=== PATIENT | male | born 1985 | race Caucasian/White ===

== ENCOUNTER → 2017-02-19 | Outpatient (CLI) | payer OTHER ==
--- NOTE | 2017-02-19 16:45 | XR ---
EXAMINATION TYPE: XR thoracic spine complete DATE OF EXAM: 02/19/2017 4:40 PM CLINICAL HISTORY: pain TECHNIQUE: Frontal, lateral, and swimmer's view of thoracic spine are obtained. COMPARISON: None. FINDINGS: Thoracic spine show satisfactory alignment without evidence of acute fracture or dislocatio n. Mild curvature seen convex to the left. Vertebral body heights are preserved. Disc spaces are wel l preserved. Visualized ribs are unremarkable. IMPRESSION: No acute fracture or dislocation is seen in the thoracic spine. ICD 10 NO FRACTURE, INIT IAL EVALUATION
--- NOTE | 2017-02-19 16:45 | XR ---
EXAMINATION TYPE: XR lumbar spine with bend/flex DATE OF EXAM: 02/19/2017 4:41 PM CLINICAL HISTORY: pain COMPARISON: NONE TECHNIQUE: AP and lateral views of the lumbar spine as well as flexion and extension views obtained. FINDINGS: There are 5 lumbar type vertebral bodies identified. The lumbar spine shows satisfactory alignment without evidence of acute fracture or dislocation. Stability is noted at flexion, extension and neutral lateral position. Vertebral body heights are within normal limits. Disc spaces are well preserved. The overlying soft tissue appears unremarkable. IMPRESSION: No acute fracture or dislocation is seen in the lumbar spine. ICD 10 NO FRACTURE, INITIAL EVALUATION
== END ==
LOC: RADXRMAIN 16:04
PROVIDERS: ATTEND Psychiatry & Neurology Neurology
DX: M54.5 Low back pain (principal); M54.6 Pain in thoracic spine
CPT/HCPCS: 72072; 72114

== ENCOUNTER 2018-04-19 17:44 | Emergency (ER) | payer OTHER ==
[2018-04-19 18:00] VITALS: RESP 18
[2018-04-19] MEDS ORDERED: SODIUM CHLORIDE 0.9% 1,000 ML IV ONE (18:33)
[2018-04-19 19:00] LABS: Basophils % (A) 0 %; Eosinophils # (A) 0.2 k/uL (0-0.7); Eosinophils % (A) 2 %; HCT 48.2 % (39.0-53.0); HGB 16.2 gm/dL (13.0-17.5); Lymphocytes # (A) 1.5 k/uL (1.0-4.8); Lymphocytes % (A) 19 %; MCH 30.4 pg (25.0-35.0); MCHC 33.5 g/dL (31.0-37.0); MCV 90.7 fL (80.0-100.0); Mean Platelet Volume 7.1; Monocytes # (A) 0.5 k/uL (0-1.0); Monocytes % (A) 6 %; Neutrophils # (A) 5.7 k/uL (1.3-7.7); Neutrophils % (A) 71 %; Platelet Count 230 k/uL (150-450); RBC 5.32 m/uL (4.30-5.90); RDW 13.5 % (11.5-15.5)
[2018-04-19 19:02] LABS: Appearance,Urine Clear (Clear); Bilirubin,Urine Negative (Negative); Blood,Urine Negative (Negative); Color,Urine Light Yellow; Glucose,Urine (UA) Negative (Negative); Ketones,Urine Negative (Negative); Leukocyte Esterase,Urine Negative (Negative); Nitrite,Urine Negative (Negative); Protein,Urine Negative (Negative); Specific Gravity,Urine 1.011 (1.001-1.035); Urobilinogen,Urine <2.0 mg/dL (<2.0)
[2018-04-19 19:09] LABS: ALT 125 U/L (21-72); AST 65 U/L (17-59); Albumin 4.8 g/dL (3.5-5.0); Alkaline Phosphatase 75 U/L (38-126); Amylase 56 U/L (30-110); Anion Gap 14 mmol/L; Blood Urea Nitrogen 12 mg/dL (9-20); Calcium 9.8 mg/dL (8.4-10.2); Carbon Dioxide 26 mmol/L (22-30); Chloride 101 mmol/L (98-107); Glucose 104 mg/dL (74-99); Lipase 60 U/L (23-300); Potassium 4.4 mmol/L (3.5-5.1); Sodium 141 mmol/L (137-145); Total Bilirubin 0.5 mg/dL (0.2-1.3); Total Protein 7.8 g/dL (6.3-8.2)
--- NOTE | 2018-04-19 19:31 | ED ---
Abdominal Pain HPI - General Chief Complaint: Abdominal Pain Stated Complaint: Dizziness/Tachycardia Time Seen by Provider: 04/19/18 18:01 Source: patient Mode of arrival: ambulatory Limitations: no limitations - History of Present Illness Initial Comments: 32-year-old male patient presents the emergency department today for evaluation of abdominal pain and back pain. Patient states that he has been having issues on and off for the last couple of months. Patient states he can feel a pulsating in his abdomen. Patient states that this started after he felt a ripping tearing sensation in his "stomach" approximate month ago. Patient states that the pulsating seems to move around the abdomen. He states that he has been fatigued and weak. States he was seen and treated at [facility] the other day. States he did start him on MiraLAX. States he has been having normal bowel movements but his symptoms seem to be continuing. Patient states that he has had sharp lower back pain for the last couple of months as well. States that when he cracks his back the pain improves, but he always has some element of back pain. He denies any radiation of the pain down his legs, no numbness or tingling. No loss of bowel or bladder control. No saddle anesthesia. Patient is very upset, states he feels like no one is listening to him, he is very scared that he has an aneurysm in his abdomen and no one will check for it. Patient does have a mental health history, stopped taking his Abilify 1-2 months ago due to weight gain. He denies any nausea, vomiting, fever, chills, chest pain, shortness of breath, or sweats. States he does have difficulty with urination. Patient denies any recent rash, numbness, tingling, dizziness, weakness, hematuria, dysuria, urinary urgency, urinary frequency, headache, visual changes, or any other complaints. - Related Data Home Medications Medication Instructions Recorded Confirmed No Known Home Medications 02/19/15 05/06/15 Allergies Allergy/AdvReac Type Severity Reaction Status Date / Time No Known Allergies Allergy Verified 05/05/15 21:14 Review of Systems ROS Statement: Those systems with pertinent positive or pertinent negative responses have been documented in the HPI. ROS Other: All systems not noted in ROS Statement are negative. Past Medical History Past Medical History: Hypertension History of Any Multi-Drug Resistant Organisms: None Reported Past Surgical History: No Surgical Hx Reported Additional Past Surgical History / Comment(s): plastic surgery for aguirre Past Psychological History: Bipolar Smoking Status: Former smoker Past Alcohol Use History: Occasional Past Drug Use History: Marijuana General Exam Limitations: no limitations General appearance: alert, in no apparent distress, other (This is a well- developed, obese adult male patient who appears anxious. Vital signs upon presentation are temperature 98.8F, pulse 84, respirations 18, blood pressure 144/84, pulse ox 98% on room air.) Eye exam: Present: normal appearance, PERRL, EOMI. Absent: scleral icterus, conjunctival injection, periorbital swelling ENT exam: Present: normal exam, normal oropharynx, mucous membranes moist Respiratory exam: Present: normal lung sounds bilaterally. Absent: respiratory distress, wheezes, rales, rhonchi, stridor Cardiovascular Exam: Present: regular rate, normal rhythm, normal heart sounds. Absent: systolic murmur, diastolic murmur, rubs, gallop, clicks GI/Abdominal exam: Present: soft, normal bowel sounds. Absent: distended, tenderness, guarding, rebound, rigid Back exam: Present: normal inspection. Absent: vertebral tenderness Neurological exam: Present: alert, oriented X3, CN II-XII intact Psychiatric exam: Present: normal affect, normal mood Skin exam: Present: warm, dry, intact, normal color. Absent: rash Course Vital Signs 04/19/18 04/19/18 17:56 20:05 Temperature 98.8 F 97.6 F Pulse Rate 84 87 Respiratory 18 18 Rate Blood Pressure 144/84 145/67 O2 Sat by Pulse 98 98 Oximetry Medical Decision Making - Medical Decision Making 32-year-old male patient presents to the emergency department today for evaluation of abdominal pulsations and multiple GI symptoms. Physical examination was relatively unremarkable. Abdomen soft and nontender. Labs reviewed and did show mildly elevated liver enzymes consistent with fatty liver seen on computed tomography scan. CT of the abdomen and pelvis was reviewed and showed no acute intra-abdominal processes. Vital signs are stable. Did discuss findings and results with the patient. To follow-up with gastroenterology. He is instructed to follow-up with his primary care physician for recheck in 1-2 days. Return parameters discussed in detail. He verbalizes understanding and agrees with this plan. - Lab Data Result diagrams: 04/19/18 18:48 04/19/18 18:48 Lab Results 04/19/18 04/19/18 04/19/18 Range/Units 18:48 18:48 18:48 WBC 8.0 (3.8-10.6) k/uL RBC 5.32 (4.30-5.90) m/uL Hgb 16.2 (13.0-17.5) gm/dL Hct 48.2 (39.0-53.0) % MCV 90.7 (80.0-100.0) fL MCH 30.4 (25.0-35.0) pg MCHC 33.5 (31.0-37.0) g/dL RDW 13.5 (11.5-15.5) % Plt Count 230 (150-450) k/uL Neutrophils % 71 % Lymphocytes % 19 % Monocytes % 6 % Eosinophils % 2 % Basophils % 0 % Neutrophils # 5.7 (1.3-7.7) k/uL Lymphocytes # 1.5 (1.0-4.8) k/uL Monocytes # 0.5 (0-1.0) k/uL Eosinophils # 0.2 (0-0.7) k/uL Basophils # 0.0 (0-0.2) k/uL Sodium 141 (137-145) mmol/L Potassium 4.4 (3.5-5.1) mmol/L Chloride 101 (98-107) mmol/L Carbon Dioxide 26 (22-30) mmol/L Anion Gap 14 mmol/L BUN 12 (9-20) mg/dL Creatinine 0.80 (0.66-1.25) mg/dL Est GFR (CKD-EPI)AfAm >90 (>60 ml/min/1.73 sqM) Est GFR (CKD-EPI)NonAf >90 (>60 ml/min/1.73 sqM) Glucose 104 H (74-99) mg/dL Calcium 9.8 (8.4-10.2) mg/dL Total Bilirubin 0.5 (0.2-1.3) mg/dL AST 65 H (17-59) U/L ALT 125 H (21-72) U/L Alkaline Phosphatase 75 (38-126) U/L Total Protein 7.8 (6.3-8.2) g/dL Albumin 4.8 (3.5-5.0) g/dL Amylase 56 (30-110) U/L Lipase 60 (23-300) U/L Urine Color Light Yellow Urine Appearance Clear (Clear) Urine pH 6.0 (5.0-8.0) Ur Specific [place] 1.011 (1.001-1.035) Urine Protein Negative (Negative) Urine Glucose (UA) Negative (Negative) Urine Ketones Negative (Negative) Urine Blood Negative (Negative) Urine Nitrite Negative (Negative) Urine Bilirubin Negative (Negative) Urine Urobilinogen <2.0 (<2.0) mg/dL Ur Leukocyte Esterase Negative (Negative) - Radiology Data Radiology results: report reviewed, image reviewed CT of the abdomen and pelvis with contrast was obtained. Report was reviewed in its entirety. Impression by Dr. Virgen shows colonic diverticulosis without abscess formation. No free air or bowel obstruction. Normal appendix. No calcifications or hydronephrosis of either kidney. No calcifications in the urinary bladder. Diminished attenuation coefficient of the liver suggestive the liver steatosis. I also see no evidence of abdominal aortic aneurysm or abnormality. Disposition Clinical Impression: Abdominal pain, Chronic low back pain Disposition: HOME SELF-CARE Condition: Good Instructions: Abdominal Pain (ED), Chronic Back Pain (ED) Additional Instructions: Take Tylenol Motrin for pain control. Increase fruits and veggies as well as fiber in your diet. Continue taking MiraLAX. Follow-up with the plug assembler for further evaluation. Return here immediately for any new , worsening, or concerning symptoms. Is patient prescribed a controlled substance at d/c from ED?: No Referrals: [facility] [Primary Care Provider] - 1-2 days Tammy Bergman MD [STAFF PHYSICIAN] - 1-2 days Time of Disposition: 20:00
--- NOTE | 2018-04-19 19:46 | CT ---
EXAMINATION TYPE: CT abdomen pelvis w con DATE OF EXAM: 04/19/2018 COMPARISON: HISTORY: Abdominal pain CT DLP: 3558 mGycm Automated exposure control for dose reduction was used. TECHNIQUE: Helical acquisition of images was performed from the lung bases through the pelvis. CONTRAST: Performed without Oral Contrast and with IV Contrast, patient injected with 100 mL of Isovue 300. FINDINGS: LUNG BASES: No significant abnormality is appreciated. LIVER/GB: Liver has a diminished attenuation pleural effusion is compared to the spleen indicative of liver steatosis. No distention of the intrahepatic biliary radicles or focal intrahepatic lesions. PANCREAS: No significant abnormality is seen. SPLEEN: No significant abnormality is seen. ADRENALS: No significant abnormality is seen. KIDNEYS: No significant abnormality is seen. FREE AIR: No free air is visualized. RETROPERITONEAL ADENOPATHY: None visualized REPRODUCTIVE ORGANS: No significant abnormality is seen URINARY BLADDER: No significant abnormality is seen. PELVIC ADENOPATHY: None visualized. OSSEOUS STRUCTURES: No significant abnormality is seen. BOWEL: Normal appendix. No free air or bowel obstruction. Scattered colonic diverticula within the sigmoid region indicating diverticulosis without abscess formation. OTHER: IMPRESSION: COLONIC DIVERTICULOSIS WITHOUT ABSCESS FORMATION. NO FREE AIR OR BOWEL OBSTRUCTION. NORMAL APPENDIX. NO CALCIFICATIONS OR HYDRONEPHROSIS OF EITHER KIDNEY. NO CALCIFICATIONS IN THE URINARY BLADDER. DIMINISHED ATTENUATION COEFFICIENT OF THE LIVER SUGGESTIVE OF LIVER STEATOSIS.
[2018-04-19 20:06] VITALS: BP 145/67; PULSE 87; TEMP 97.6
== END 2018-04-19 20:11 | disposition home or self-care (01) ==
LOC: EC 17:44
DX: R10.9 Unspecified abdominal pain (principal); M54.5 Low back pain; G89.29 Other chronic pain; R53.83 Other fatigue; Z87.891 Personal history of nicotine dependence
CPT/HCPCS: 36415; 80053; 82150; 83690; 85025; 81003; 74177; 99284; 96360; Q9967

== ENCOUNTER 2018-11-04 02:00 | Emergency (ER) | payer OTHER ==
[2018-11-04 02:12] VITALS: BP 144/83; PULSE 103; RESP 18; TEMP 99.1
--- NOTE | 2018-11-04 02:47 | ED ---
Psych HPI - General Source: patient, RN notes reviewed Mode of arrival: ambulatory Limitations: no limitations <Lalo Drake - Last Filed: 11/04/18 02:47> <Aisha Tapia - Last Filed: 11/04/18 05:52> <Rinku Mcdonald - Last Filed: 11/04/18 09:54> - General Chief Complaint: Psychiatric Symptoms Stated Complaint: mental health Time Seen by Provider: 11/04/18 02:00 - History of Present Illness Initial Comments: This is a 33-year-old male presents emergency department for psychiatric evaluation. Patient states he has a history of schizophrenia. Patient has not been been taking his medications as directed. He states he's been seeing things that he cannot sleep at nighttime. He believes people are telling him that he is evil in all other things are evil.Patient denies any homicidal ideation but is had thoughts of suicide. Patient doesn't physical complaints. Denies any illicit drug use any alcohol abuse. (Lalo Drake) - Related Data Home Medications Medication Instructions Recorded Confirmed Albuterol Inhaler [Ventolin Hfa 1 - 2 puff INHALATION RT-Q6H PRN 11/04/18 Inhaler] Atenolol 25 mg PO BID 11/04/18 11/04/18 Baclofen [Lioresal] 10 mg PO BID 11/04/18 11/04/18 Cholecalciferol [Vitamin D3] 5,000 unit PO DAILY 11/04/18 11/04/18 Fenofibrate,Micronized 43 mg PO DAILY 11/04/18 11/04/18 [Fenofibrate] Ketorolac [Toradol] 10 mg PO Q6HR PRN 11/04/18 11/04/18 Lisinopril [Zestril] 10 mg PO DAILY 11/04/18 11/04/18 Allergies Allergy/AdvReac Type Severity Reaction Status Date / Time No Known Allergies Allergy Verified 11/04/18 07:20 Review of Systems ROS Other: All systems not noted in ROS Statement are negative. <Lalo Drake - Last Filed: 11/04/18 02:47> ROS Other: All systems not noted in ROS Statement are negative. <Aisha Tapia - Last Filed: 11/04/18 05:52> ROS Other: All systems not noted in ROS Statement are negative. <Rinku Mcdonald - Last Filed: 11/04/18 09:54> ROS Statement: Those systems with pertinent positive or pertinent negative responses have been documented in the HPI. Past Medical History Past Medical History: Hypertension History of Any Multi-Drug Resistant Organisms: MRSA Date of last positivie culture/infection: 04/06/2018 MDRO Source:: buttock wound Past Surgical History: No Surgical Hx Reported Additional Past Surgical History / Comment(s): plastic surgery for aguirre, fingers sewed back on, Past Psychological History: Bipolar, Schizophrenia Smoking Status: Current some day smoker Past Alcohol Use History: Occasional Past Drug Use History: Marijuana <Lalo Drake - Last Filed: 11/04/18 02:47> General Exam Limitations: no limitations General appearance: alert, in no apparent distress Head exam: Present: atraumatic, normocephalic, normal inspection Eye exam: Present: normal appearance, PERRL, EOMI. Absent: scleral icterus, conjunctival injection, periorbital swelling ENT exam: Present: normal exam, normal oropharynx, mucous membranes moist Neck exam: Present: normal inspection. Absent: tenderness, meningismus, lymphadenopathy Respiratory exam: Present: normal lung sounds bilaterally. Absent: respiratory distress, wheezes, rales, rhonchi, stridor Cardiovascular Exam: Present: regular rate, normal rhythm, normal heart sounds. Absent: systolic murmur, diastolic murmur, rubs, gallop, clicks GI/Abdominal exam: Present: soft, normal bowel sounds. Absent: distended, tenderness, guarding, rebound, rigid Neurological exam: Present: alert, oriented X3, CN II-XII intact Psychiatric exam: Present: flat affect Skin exam: Present: warm, dry, intact, normal color. Absent: rash <Lalo Drake - Last Filed: 11/04/18 02:47> Course <aLlo Drake - Last Filed: 11/04/18 02:47> <Aisha Tapia - Last Filed: 11/04/18 05:52> <Rinku Mcdonald - Last Filed: 11/04/18 09:54> Vital Signs 11/04/18 02:05 Temperature 99.1 F Pulse Rate 103 H Respiratory 18 Rate Blood Pressure 144/83 O2 Sat by Pulse 98 Oximetry - Reevaluation(s) Reevaluation #1: 11/04/18 09:53 Patient has been resting relatively comfortably throughout the morning. He will be transferred to [facility]. He has been threatening to the staff members and will require chemical sedation. He will receive Ativan and Geodon prior to transfer. He is threatening harm to staff members. (Rinku Mcdonald) Reevaluation #2: 11/04/18 09:54 I did fill out the transfer forms. (Rinku Mcdonald) Medical Decision Making <Lalo Drake - Last Filed: 11/04/18 02:47> - Lab Data Result diagrams: 11/04/18 04:47 <Aisha Tapia - Last Filed: 11/04/18 05:52> - Lab Data Result diagrams: 11/04/18 04:47 11/04/18 04:47 <Rinku Mcdonald - Last Filed: 11/04/18 09:54> - Medical Decision Making I personally saw and examined the patient. I reviewed and agree with the mid- level provider findings including all diagnostic interpretations and treatment plans as written unless otherwise stated. Upon my evaluation the patient does appear to be acutely psychotic he's having auditory and visual hallucinations. I agree with the EPS assessment and plan for inpatient admission for psychiatric evaluation. I completed the psychiatric certification paperwork for transfer to outside facility. (Aihsa Tapia) - Lab Data Lab Results 11/04/18 11/04/18 11/04/18 Range/Units 04:35 04:35 04:47 WBC 9.4 (3.8-10.6) k/uL RBC 5.16 (4.30-5.90) m/uL Hgb 15.3 (13.0-17.5) gm/dL Hct 46.6 (39.0-53.0) % MCV 90.3 (80.0-100.0) fL MCH 29.7 (25.0-35.0) pg MCHC 32.8 (31.0-37.0) g/dL RDW 13.6 (11.5-15.5) % Plt Count 224 (150-450) k/uL Neutrophils % 63 % Lymphocytes % 26 % Monocytes % 6 % Eosinophils % 3 % Basophils % 0 % Neutrophils # 5.9 (1.3-7.7) k/uL Lymphocytes # 2.5 (1.0-4.8) k/uL Monocytes # 0.5 (0-1.0) k/uL Eosinophils # 0.2 (0-0.7) k/uL Basophils # 0.0 (0-0.2) k/uL Sodium (137-145) mmol/L Potassium (3.5-5.1) mmol/L Chloride (98-107) mmol/L Carbon Dioxide (22-30) mmol/L Anion Gap mmol/L BUN (9-20) mg/dL Creatinine (0.66-1.25) mg/dL Est GFR (CKD-EPI)AfAm (>60 ml/min/1.73 sqM) Est GFR (CKD-EPI)NonAf (>60 ml/min/1.73 sqM) Glucose (74-99) mg/dL Calcium (8.4-10.2) mg/dL Total Bilirubin (0.2-1.3) mg/dL AST (17-59) U/L ALT (21-72) U/L Alkaline Phosphatase (38-126) U/L Total Protein (6.3-8.2) g/dL Albumin (3.5-5.0) g/dL Urine Color Yellow Urine Appearance Clear (Clear) Urine pH 5.5 (5.0-8.0) Ur Specific [place] 1.023 (1.001-1.035) Urine Protein Trace H (Negative) Urine Glucose (UA) Negative (Negative) Urine Ketones Negative (Negative) Urine Blood Negative (Negative) Urine Nitrite Negative (Negative) Urine Bilirubin Negative (Negative) Urine Urobilinogen <2.0 (<2.0) mg/dL Ur Leukocyte Esterase Negative (Negative) Urine Opiates Screen Not Detected (NotDetected) Ur Oxycodone Screen Not Detected (NotDetected) Urine Methadone Screen Not Detected (NotDetected) Ur Propoxyphene Screen Not Detected (NotDetected) Ur Barbiturates Screen Not Detected (NotDetected) U Tricyclic Antidepress Not Detected (NotDetected) Ur Phencyclidine Scrn Not Detected (NotDetected) Ur Amphetamines Screen Not Detected (NotDetected) U Methamphetamines Scrn Not Detected (NotDetected) U Benzodiazepines Scrn Not Detected (NotDetected) Urine Cocaine Screen Not Detected (NotDetected) U Marijuana (THC) Screen Not Detected (NotDetected) 11/04/18 Range/Units 04:47 WBC (3.8-10.6) k/uL RBC (4.30-5.90) m/uL Hgb (13.0-17.5) gm/dL Hct (39.0-53.0) % MCV (80.0-100.0) fL MCH (25.0-35.0) pg MCHC (31.0-37.0) g/dL RDW (11.5-15.5) % Plt Count (150-450) k/uL Neutrophils % % Lymphocytes % % Monocytes % % Eosinophils % % Basophils % % Neutrophils # (1.3-7.7) k/uL Lymphocytes # (1.0-4.8) k/uL Monocytes # (0-1.0) k/uL Eosinophils # (0-0.7) k/uL Basophils # (0-0.2) k/uL Sodium 139 (137-145) mmol/L Potassium 4.1 (3.5-5.1) mmol/L Chloride 104 (98-107) mmol/L Carbon Dioxide 26 (22-30) mmol/L Anion Gap 9 mmol/L BUN 18 (9-20) mg/dL Creatinine 0.90 (0.66-1.25) mg/dL Est GFR (CKD-EPI)AfAm >90 (>60 ml/min/1.73 sqM) Est GFR (CKD-EPI)NonAf >90 (>60 ml/min/1.73 sqM) Glucose 135 H (74-99) mg/dL Calcium 9.4 (8.4-10.2) mg/dL Total Bilirubin 1.3 (0.2-1.3) mg/dL AST 59 (17-59) U/L ALT 88 H (21-72) U/L Alkaline Phosphatase 67 (38-126) U/L Total Protein 7.2 (6.3-8.2) g/dL Albumin 4.4 (3.5-5.0) g/dL Urine Color Urine Appearance (Clear) Urine pH (5.0-8.0) Ur Specific [place] (1.001-1.035) Urine Protein (Negative) Urine Glucose (UA) (Negative) Urine Ketones (Negative) Urine Blood (Negative) Urine Nitrite (Negative) Urine Bilirubin (Negative) Urine Urobilinogen (<2.0) mg/dL Ur Leukocyte Esterase (Negative) Urine Opiates Screen (NotDetected) Ur Oxycodone Screen (NotDetected) Urine Methadone Screen (NotDetected) Ur Propoxyphene Screen (NotDetected) Ur Barbiturates Screen (NotDetected) U Tricyclic Antidepress (NotDetected) Ur Phencyclidine Scrn (NotDetected) Ur Amphetamines Screen (NotDetected) U Methamphetamines Scrn (NotDetected) U Benzodiazepines Scrn (NotDetected) Urine Cocaine Screen (NotDetected) U Marijuana (THC) Screen (NotDetected) Disposition <Lalo Drake - Last Filed: 11/04/18 02:47> Is patient prescribed a controlled substance at d/c from ED?: No <Aisha Tapia - Last Filed: 11/04/18 05:52> Is patient prescribed a controlled substance at d/c from ED?: No <Rinku Mcdonald - Last Filed: 11/04/18 09:54> Clinical Impression: Acute psychosis, Psychosis Disposition: TRANSFER TO PSYCH HOSP/UNIT Condition: Serious Referrals: [facility] [Primary Care Provider] - 1-2 days
[2018-11-04 04:58] LABS: Amphetamine Screen,Urine Not Detected (NotDetected); Barbiturate Screen,Urine Not Detected (NotDetected); Benzodiazepines Screen,Urine Not Detected (NotDetected); Cocaine Screen,Urine Not Detected (NotDetected); Methadone Screen, Urine Not Detected (NotDetected); Opiate Screen,Urine Not Detected (NotDetected); Oxycodone Screen, Urine Not Detected (NotDetected); Phencyclidine Screen,Urine Not Detected (NotDetected); Tricyclic Antidepressant,Urine Not Detected (NotDetected); Urn Cannabinoid Scrn Not Detected (NotDetected)
[2018-11-04 05:03] LABS: Appearance,Urine Clear (Clear); Bilirubin,Urine Negative (Negative); Blood,Urine Negative (Negative); Color,Urine Yellow; Glucose,Urine (UA) Negative (Negative); Ketones,Urine Negative (Negative); Leukocyte Esterase,Urine Negative (Negative); Nitrite,Urine Negative (Negative); PH, Urine 5.5 (5.0-8.0); Protein,Urine Trace (Negative); Specific Gravity,Urine 1.023 (1.001-1.035); Urobilinogen,Urine <2.0 mg/dL (<2.0)
[2018-11-04 05:03] LABS: Basophils % (A) 0 %; Eosinophils # (A) 0.2 k/uL (0-0.7); Eosinophils % (A) 3 %; HCT 46.6 % (39.0-53.0); HGB 15.3 gm/dL (13.0-17.5); Lymphocytes # (A) 2.5 k/uL (1.0-4.8); Lymphocytes % (A) 26 %; MCH 29.7 pg (25.0-35.0); MCHC 32.8 g/dL (31.0-37.0); MCV 90.3 fL (80.0-100.0); Mean Platelet Volume 6.7; Monocytes # (A) 0.5 k/uL (0-1.0); Monocytes % (A) 6 %; Neutrophils # (A) 5.9 k/uL (1.3-7.7); Neutrophils % (A) 63 %; Platelet Count 224 k/uL (150-450); RBC 5.16 m/uL (4.30-5.90); RDW 13.6 % (11.5-15.5); WBC 9.4 k/uL (3.8-10.6)
[2018-11-04 05:20] LABS: ALT 88 U/L (21-72); AST 59 U/L (17-59); Albumin 4.4 g/dL (3.5-5.0); Alkaline Phosphatase 67 U/L (38-126); Anion Gap 9 mmol/L; Blood Urea Nitrogen 18 mg/dL (9-20); Calcium 9.4 mg/dL (8.4-10.2); Carbon Dioxide 26 mmol/L (22-30); Chloride 104 mmol/L (98-107); Glucose 135 mg/dL (74-99); Potassium 4.1 mmol/L (3.5-5.1); Sodium 139 mmol/L (137-145); Total Bilirubin 1.3 mg/dL (0.2-1.3); Total Protein 7.2 g/dL (6.3-8.2)
[2018-11-04] MEDS ORDERED: LORazepam 2 MG/ML INJ IM STA (09:49)
[2018-11-04] MEDS ORDERED: ZIPRASIDONE 20 MG VIAL IM STA (09:50)
[2018-11-04] MEDS ORDERED: diphenhydrAMINE 50 MG/ML 1 ML VIAL IM STA (11:05)
== END 2018-11-04 11:35 ==
LOC: EC 02:00
DX: F23 Brief psychotic disorder (principal); F31.9 Bipolar disorder, unspecified; I10 Essential (primary) hypertension; F17.200 Nicotine dependence, unspecified, uncomplicated; Z86.14 Personal history of Methicillin resistant Staphylococcus aureus infection; Z79.899 Other long term (current) drug therapy
CPT/HCPCS: 36415; 80053; 85025; 81003; 80306; 99285; 96372 ×3; J2060; J1200; J3486

== ENCOUNTER 2023-06-30 19:28 | Emergency (ER) | payer OTHER ==
--- NOTE | 2023-06-30 19:38 | ED ---
Chest Pain HPI - General Source: patient, RN notes reviewed Mode of arrival: wheelchair Limitations: no limitations - History of Present Illness MD Complaint: chest pain <Amy Guevara - Last Filed: 06/30/23 19:39> <Erasmo Donahue - Last Filed: 07/01/23 06:32> - General Chief Complaint: Chest Pain Stated Complaint: Sob, Chest Pain Time Seen by Provider: 06/30/23 19:34 - History of Present Illness Initial Comments: This is a 37 year old male who presents to the emergency department for shortness of breath. Symptoms started 3.5 days ago. States that his whole body "locked up" and he couldn't move when symptoms first began. This has since been occurring intermittently over the last 3.5 days as well. He also feels like there is air in his chest or his chest may explode. He is not currently in any pain, however he states that if his body locks up, he suddenly develops pain that is a 10/10. (Amy Guevara) 37-year-old male with no significant past medical history presents to the emergency department for chest and abdominal pain. Patient complaining of some mild nausea. No fever or constitutional symptoms. It has any history of abdominal surgery. Patient states that the pain is intermittent sometimes hurts more when he coughs or twists. (Erasmo Donahue) - Related Data Home Medications Medication Instructions Recorded Confirmed Albuterol Inhaler [Ventolin Hfa 1 - 2 puff INHALATION RT-Q6H PRN 11/04/18 11/04/18 Inhaler] Baclofen [Lioresal] 10 mg PO BID 11/04/18 11/04/18 Cholecalciferol [Vitamin D3] 5,000 unit PO DAILY 11/04/18 11/04/18 Fenofibrate,Micronized 43 mg PO DAILY 11/04/18 11/04/18 [Fenofibrate] Ketorolac [Toradol] 10 mg PO Q6HR PRN 11/04/18 11/04/18 atenoloL [Atenolol] 25 mg PO BID 11/04/18 11/04/18 lisinopriL [Zestril] 10 mg PO DAILY 11/04/18 11/04/18 Allergies Allergy/AdvReac Type Severity Reaction Status Date / Time No Known Allergies Allergy Verified 06/30/23 19:39 Review of Systems ROS Other: All systems not noted in ROS Statement are negative. <Amy Guevara - Last Filed: 06/30/23 19:39> ROS Other: All systems not noted in ROS Statement are negative. <Erasmo Donahue - Last Filed: 07/01/23 06:32> ROS Statement: Those systems with pertinent positive or pertinent negative responses have been documented in the HPI. Past Medical History Past Medical History: Hypertension History of Any Multi-Drug Resistant Organisms: MRSA Date of last positivie culture/infection: 04/06/2018 MDRO Source:: buttock wound Past Surgical History: No Surgical Hx Reported Additional Past Surgical History / Comment(s): plastic surgery for aguirre, fingers sewed back on, Past Psychological History: Bipolar, Schizophrenia Past Alcohol Use History: Occasional Past Drug Use History: Marijuana <Amy Guevara - Last Filed: 06/30/23 19:39> General Exam <Amy Guevara - Last Filed: 06/30/23 19:39> <Erasmo Donahue - Last Filed: 07/01/23 06:32> - General Exam Comments Initial Comments: Visual Physical Exam Vital signs reviewed General: Well-appearing, nontoxic, no acute distress. Head: Normocephalic, atraumatic Eyes: PERRLA, EOMI ENT: Airway patent Chest: Nonlabored breathing Skin: No visual rash, normal skin tone Neuro: Alert and oriented 3 Musculoskeletal: No gross abnormalities I performed the QuickNote portion of this chart. Signed Amy Guevara PA-C. (Amy Guevara) PHYSICAL EXAM: General Impression: Alert and oriented x3, not in acute distress HEENT: Normocephalic atraumatic, extra-ocular movements intact, pupils equal and reactive to light bilaterally, mucous membranes moist. Cardiovascular: Heart regular rate and rhythm Chest: Able to complete full sentences, no retractions, no tachypnea Abdomen: abdomen soft, non-tender, non-distended, no organomegaly Musculoskeletal: Pulses present and equal in all extremities, no peripheral edema Motor: no focal deficits noted Neurological: CN II-XII grossly intact, no focal motor or sensory deficits noted Skin: Intact with no visualized rashes Psych: Normal affect and mood (Erasmo Donahue) Course Vital Signs 06/30/23 06/30/23 06/30/23 19:36 23:10 23:41 Temperature 97.9 F 98.7 F Pulse Rate 110 H 98 88 Respiratory 28 H 20 16 Rate Blood Pressure 117/74 141/82 125/85 O2 Sat by Pulse 94 L 97 98 Oximetry Chest Pain MDM <Erasmo Donahue - Last Filed: 07/01/23 06:32> - MDM Was pt. sent in by a medical professional or institution (, PA, STATION AGENT, urgent care, hospital, or [place] health care facility...) When possible be specific @ -No Did you speak to anyone other than the patient for history (EMS, parent, family, police, friend...)? What history was obtained from this source @ -No Did you review nursing and triage notes (agree or disagree)? Why? @ -I reviewed and agree with nursing and triage notes Were old charts reviewed (outside hosp., previous admission, EMS record, old EKG, old radiological studies, urgent care reports/EKG's, [place] health care facility records)? Report findings @ -No old charts were reviewed Differential Diagnosis (chest pain, altered mental status, abdominal pain women, abdominal pain men, vaginal bleeding, musculoskeletal, weakness, fever, dyspnea, syncope, headache, dizziness, GI bleed, back pain, seizure, CVA, palpatations, mental health)? @ -Differential Abdominal Pain Men: Appendicitis, cholecystitis, diverticulosis, ischemic bowel, pancreatitis, hepatitis, UTI, gastroenteritis, AAA, incarcerated hernia, bowel obstruction, constipation, inflammatory bowel, hepatitis, peptic ulcer disease, splenic infarction, perforated viscus, testicular torsion, this is not meant to be an all-inclusive list EKG interpreted by me (3pts min.). @ -see above X-rays interpreted by me (1pt min.). @ -Abdominal x-ray is unremarkable. CT interpreted by me (1pt min.). @ -CT angiography is negative for PE or any acute processes U/S interpreted by me (1pt. min.). @ -Abdominal ultrasound is negative for acute cholecystitis or cholelithiasis. What testing was considered but not performed or refused? (CT, X-rays, U/S, labs)? Why? @ -None What meds were considered but not given or refused? Why? @ -None Did you discuss the management of the patient with other professionals (professionals i.e. , PA, STATION AGENT, lab, RT, psych nurse, protective services social worker, surgical services assistant, teacher, aoc plans intelligence officer, business case analyst)? Give summary @ -No Was smoking cessation discussed for >3mins.? @ -No Was critical care preformed (if so, how long)? @ -No Were there social determinants of health that impacted care today? How? (Homelessness, low income, unemployed, alcoholism, drug addiction, transportation, low edu. Level, literacy, decrease access to med. care, correction, rehab)? @ -No Was there de-escalation of care discussed even if they declined (Discuss DNR or withdrawal of care, Hospice)? DNR status @ -No What co-morbidities impacted this encounter? (DM, HTN, Smoking, COPD, CAD, Cancer, CVA, ARF, Chemo, Hep., AIDS, mental health diagnosis, sleep apnea, morbid obesity)? @ -None Was patient admitted / discharged? Hospital course, mention meds given and route, prescriptions, significant lab abnormalities, going to OR and other pertinent info. @ -37-year-old male presents emergency department with a constellation of symptoms including chest pain and abdominal pain. He was seen initially in [facility] for rehabilitation. His vital signs are stable. From triage patient had workup for pulmonary embolism chest pain. CT angiography chest x-ray and blood work is unremarkable. At the time of my evaluation he was complaining of right upper quadrant abdominal pain. Ultrasound abdominal x-ray negative. Patient tolerating oral intake. Labs and imaging results were discussed with patient. He is stable. Patient discharged told to follow-up with primary care doctor. Undiagnosed new problem with uncertain prognosis? @ -No Drug Therapy requiring intensive monitoring for toxicity (Heparin, Nitro, Insulin, Cardizem)? @ -No Were any procedures done? @ -No Diagnosis/symptom? Acute, or Chronic, or Acute on Chronic? Uncomplicated (without systemic symptoms) or Complicated (systemic symptoms)? @ -1. Chest and abdominal pain, no high-risk features Side effects of treatment? @ -No Exacerbation, Progression, or Severe Exacerbation? @ -No Poses a threat to life or bodily function? How? (Chest pain, [place], [place], pneumonia, PE, COPD, DKA, ARF, appy, cholecystitis, CVA, Diverticulitis, Homicidal, Suicidal, threat to staff... and all critical care pts) @ -No (Erasmo Donahue) Disposition <Amy Guevara - Last Filed: 06/30/23 19:39> Is patient prescribed a controlled substance at d/c from ED?: No <Erasmo Donahue - Last Filed: 07/01/23 06:32> Clinical Impression: Chest pain, Abdominal pain Disposition: HOME SELF-CARE Condition: Good Instructions (If sedation given, give patient instructions): Abdominal Pain (ED) Referrals: [facility] [Primary Care Provider] - 1-2 days
--- NOTE | 2023-06-30 20:17 | XR ---
EXAMINATION TYPE: XR chest 2V DATE OF EXAM: 06/30/2023 COMPARISON: None HISTORY: 37-year-old male with chest pain and shortness of breath for 3 days TECHNIQUE: PA and lateral views FINDINGS: The cardiomediastinal silhouette, aorta, and pulmonary vasculature are within normal limits. Lungs an d pleural spaces are clear. IMPRESSION: No acute cardiopulmonary process.
[2023-06-30 21:09] LABS: Basophils % (A) 0 %; Eosinophils # (A) 0.2 k/uL (0-0.7); Eosinophils % (A) 2 %; HCT 44.7 % (39.0-53.0); HGB 15.1 gm/dL (13.0-17.5); Lymphocytes # (A) 1.5 k/uL (1.0-4.8); Lymphocytes % (A) 17 %; MCH 30.8 pg (25.0-35.0); MCHC 33.6 g/dL (31.0-37.0); MCV 91.5 fL (80.0-100.0); Mean Platelet Volume 7.8; Monocytes # (A) 0.7 k/uL (0-1.0); Monocytes % (A) 7 %; Neutrophils # (A) 6.4 k/uL (1.3-7.7); Neutrophils % (A) 70 %; Platelet Count 300 k/uL (150-450); RBC 4.89 m/uL (4.30-5.90); RDW 13.2 % (11.5-15.5); WBC 9.2 k/uL (3.8-10.6)
[2023-06-30 21:23] LABS: ALT 75 U/L (4-49); AST 57 U/L (17-59); African American GFR (CKD) >90 (>60 ml/min/1.73 sqM); Albumin 4.4 g/dL (3.5-5.0); Alkaline Phosphatase 74 U/L (38-126); Anion Gap 8 mmol/L; Blood Urea Nitrogen 10 mg/dL (9-20); Calcium 9.3 mg/dL (8.4-10.2); Carbon Dioxide 28 mmol/L (22-30); Chloride 99 mmol/L (98-107); Glucose 88 mg/dL (74-99); Magnesium 2.1 mg/dL (1.6-2.3); Non-African American GFR(CKD) >90 (>60 ml/min/1.73 sqM); Potassium 4.2 mmol/L (3.5-5.1); Sodium 135 mmol/L (137-145); Total Bilirubin 0.6 mg/dL (0.2-1.3); Total Protein 7.8 g/dL (6.3-8.2)
[2023-06-30 21:33] LABS: INR 0.9 (<1.2); Prothrombin Time 9.5 sec (9.0-12.0)
[2023-06-30 21:35] LABS: Partial Thromboplastin Time 19.7 sec (22.0-30.0)
--- NOTE | 2023-06-30 22:27 | CT ---
EXAM: CT Angiography Chest With Intravenous Contrast CLINICAL HISTORY: ITS.REASON CT Reason: DEON, Chest pain, elevated d-dimer TECHNIQUE: Axial computed tomographic angiography images of the chest with intravenous contrast. CTDI is 63.1 mGy and DLP is 2702 mGy-cm. This CT exam was performed using one or more of the following dose reduction techniques: automated exposure control, adjustment of the mA and/or kV according to patient size, and/or use of iterative reconstruction technique. MIP reconstructed images were created and reviewed. COMPARISON: No relevant prior studies available. FINDINGS: Pulmonary arteries: Unremarkable. No pulmonary embolism. Aorta: No acute findings. No thoracic aortic aneurysm. Lungs: Unremarkable. No mass. No consolidation. Pleural space: Unremarkable. No significant effusion. No pneumothorax. Heart: Unremarkable. No cardiomegaly. No significant pericardial effusion. No evidence of RV dysfunction. Bones/joints: No acute fracture. No dislocation. Soft tissues: Unremarkable. Lymph nodes: Unremarkable. No enlarged lymph nodes. Liver: Hepatic steatosis. IMPRESSION: No acute findings in the visualized arteries of the chest.
[2023-06-30 23:11] VITALS: TEMP 98.7
[2023-06-30 23:41] VITALS: BP 125/85; PULSE 88; RESP 16
--- NOTE | 2023-07-01 00:23 | US ---
EXAM: US Abdomen Complete CLINICAL HISTORY: ITS.REASON US Reason: ruq pain TECHNIQUE: Real-time ultrasound of the abdomen with image documentation. COMPARISON: No relevant prior studies available. FINDINGS: Liver: Hepatic steatosis. No intrahepatic bile duct dilation. Gallbladder: Unremarkable. No gallstones. Common bile duct: Nonvisualized common bile duct. Pancreas: Poorly visualized pancreas. Kidneys: Unremarkable. No stones. No solid mass. No hydronephrosis. IMPRESSION: Hepatic steatosis.
--- NOTE | 2023-07-01 02:01 | XR ---
EXAM: XR Abdomen, 1 View CLINICAL HISTORY: abdominal cramping TECHNIQUE: Frontal upright view of the abdomen/pelvis. COMPARISON: No relevant prior studies available. FINDINGS: Intraperitoneal space: No pneumoperitoneum. Gastrointestinal tract: No significant stool burden. No dilation. Organs: Excreted contrast noted in the bladder and nondilated renal collecting systems. Bones/joints: Unremarkable. IMPRESSION: Nonspecific, nonobstructive bowel gas pattern. No pneumoperitoneum.
[2023-07-01 06:34] LABS: Appearance,Urine Clear (Clear); Color,Urine Yellow; Specific Gravity,Urine >1.050 (1.001-1.035)
[2023-07-01 06:35] LABS: Bilirubin,Urine Negative (Negative); Blood,Urine Negative (Negative); Glucose,Urine (UA) Negative (Negative); Ketones,Urine Negative (Negative); Leukocyte Esterase,Urine Negative (Negative); Nitrite,Urine Negative (Negative); PH, Urine 6.5 (5.0-8.0); Protein,Urine Negative (Negative); RBC,Urine 0 /hpf (0-5); Urobilinogen,Urine <2.0 mg/dL (<2.0); WBC,Urine <1 /hpf (0-5)
== END 2023-07-01 04:15 | disposition home or self-care (01) ==
LOC: EC 19:28
DX: R07.89 Other chest pain (principal); R10.11 Right upper quadrant pain; K76.0 Fatty (change of) liver, not elsewhere classified; I10 Essential (primary) hypertension; F12.90 Cannabis use, unspecified, uncomplicated; Z86.59 Personal history of other mental and behavioral disorders; Z79.899 Other long term (current) drug therapy
CPT/HCPCS: 36415; 93005; 85379; 80053; 83735; 84484; 85025; 85610; 85730; 71046; 71275; 99285; Q9967; 74018; 76705; 81003

== ENCOUNTER 2024-09-13 23:41 | Inpatient (IN) | payer MEDICAID, OTHER ==
--- NOTE | 2024-09-14 00:13 | ED ---
Psych HPI - General Chief Complaint: Psychiatric Symptoms Stated Complaint: Mental Health Time Seen by Provider: 09/13/24 23:54 Source: patient, RN notes reviewed Mode of arrival: ambulatory - History of Present Illness Initial Comments: This is a 39-year-old male who presents to the emergency department for psychiatric evaluation. Patient reportedly had his medication adjusted by [facility] and did not like how it made him feel, so he stopped taking them. Brother states that he has been off of his medication for about a week. Patient is very fixated on speaking with God. States that when he does not have time to pray, that God is going to light him on fire. Also states that he randomly has pains and the only way it will heal is with God. However, because God is mad at him ri ght now, he is having more pain. He denies any suicidal or homicidal ideations. States that he did microwave a can of soup with the lid inside of it. He is concerned that because he ate the soup that there is metal all throughout his body. - Related Data Home Medications Medication Instructions Recorded Confirmed Albuterol Inhaler [Ventolin Hfa 1 - 2 puff INHALATION RT-Q6H PRN 11/04/18 11/04/18 Inhaler] Baclofen [Lioresal] 10 mg PO BID 11/04/18 11/04/18 Cholecalciferol [Vitamin D3] 5,000 unit PO DAILY 11/04/18 11/04/18 Fenofibrate,Micronized 43 mg PO DAILY 11/04/18 11/04/18 [Fenofibrate] Ketorolac [Toradol] 10 mg PO Q6HR PRN 11/04/18 11/04/18 atenoloL [Atenolol] 25 mg PO BID 11/04/18 11/04/18 lisinopriL [Zestril] 10 mg PO DAILY 11/04/18 11/04/18 Allergies Allergy/AdvReac Type Severity Reaction Status Date / Time No Known Allergies Allergy Verified 09/13/24 23:50 Review of Systems ROS Statement: Those systems with pertinent positive or pertinent negative responses have been documented in the HPI. ROS Other: All systems not noted in ROS Statement are negative. Past Medical History Past Medical History: Hypertension History of Any Multi-Drug Resistant Organisms: MRSA Date of last positivie culture/infection: 04/06/2018 MDRO Source:: buttock wound Past Surgical History: No Surgical Hx Reported Additional Past Surgical History / Comment(s): plastic surgery for aguirre, fingers sewed back on, Past Psychological History: Bipolar, Schizophrenia Past Alcohol Use History: Occasional Past Drug Use History: Marijuana General Exam Limitations: no limitations General appearance: alert, in no apparent distress Head exam: Present: atraumatic, normocephalic, normal inspection Respiratory exam: Present: normal lung sounds bilaterally. Absent: respiratory distress, wheezes, rales, rhonchi, stridor Cardiovascular Exam: Present: regular rate, normal rhythm, normal heart sounds. Absent: systolic murmur, diastolic murmur, rubs, gallop, clicks Neurological exam: Present: alert, oriented X3, CN II-XII intact Psychiatric exam: Absent: homicidal ideation, suicidal ideation Expanded Focused psych exam: Present: delusional, paranoid, perseverating Skin exam: Present: warm, dry, intact, normal color. Absent: rash Course Vital Signs 09/13/24 23:47 Temperature 98.5 F Pulse Rate 103 H Respiratory 20 Rate Blood Pressure 115/82 O2 Sat by Pulse 96 Oximetry Medical Decision Making - Medical Decision Making This is a 39-year-old male who presents to the emergency department for psychiatric evaluation. Was pt. sent in by a medical professional or institution? @ -No Did you speak to anyone other than the patient for history? @ -His brother provided the information about how long he has been off of his medication Did you review nursing and triage notes? @ -Yes, and I agree, it is accurate with regards to the patient's symptoms. Were old charts reviewed? @ -No Differential Diagnosis? @ -Differential Mental Health Depression, anxiety, bipolar, psychosis, schizophrenia, borderline personality, situational depression, adjustment disorder, behavioral disorder, brain tumor, malingering, substance abuse, encephalopathy, medication reaction, dementia, hypothyroidism, degenerative neurologic disorder, lupus.... This is not meant to be all-inclusive list EKG interpreted by me (3pts min.)? @ -Not obtained X-rays interpreted by me (1pt min.)? @ -Not obtained CT interpreted by me (1pt min.)? @ -Not obtained U/S interpreted by me (1pt. min.)? @ -Not obtained What testing was considered but not performed? (CT, X-rays, U/S, labs)? Why? @ -None What meds were considered but not given? Why? @ -None Did you discuss the management of the patient with other professionals? @ -Yes, Tamera with EPS, who advised that the patient meets criteria for inpatient psychiatric hospitalization. Did you reconcile home meds? @ -No Was smoking cessation discussed for >3mins.? @ -No Was critical care preformed (if so, how long)? @ -No Were there social determinants of health that impacted care today? How? (Homelessness, low income, unemployed, alcoholism, drug addiction, transportation, low edu. Level, literacy, decrease access to med. care, senior living, rehab)? @ -No Was there de-escalation of care discussed even if they declined? (Discuss DNR or withdrawal of care, Hospice)? @ -No What co-morbidities impacted this encounter? (DM, HTN, Smoking, COPD, CAD, Cancer, CVA, Hep., AIDS, mental health diagnosis, sleep apnea, morbid obesity)? @ -Schizophrenia Was patient admitted / discharged? @ -Admitted. UDS positive for marijuana. Patient's BAT was 0.0 and he was cleared for EPS evaluation. EPS evaluated the patient and advised that he does meet criteria for inpatient psychiatric hospitalization due to acute psychosis. He has been experiencing paranoia, delusions, and auditory hallucinations. He is also noncompliant with his medication and ADLs are compromised. Patient signed himself in voluntarily. Patient admitted to for further psychiatric care. Case discussed with ED attending, Dr. Murcia. Undiagnosed new problem with uncertain prognosis? @ -None Drug Therapy requiring intensive monitoring for toxicity (Heparin, Nitro, Insulin, Cardizem)? @ -None Were any procedures done? @ -None Diagnosis/symptom? @ -Acute psychosis Acute, or Chronic, or Acute on Chronic? @ -Acute Uncomplicated (without systemic symptoms) or Complicated (systemic symptoms)? @ -Complicated Side effects of treatment? @ -None Exacerbation, Progression, or Severe Exacerbation] @ -Not applicable Poses a threat to life or bodily function? @ -Yes, there is risk to himself and others when he is exhibiting acute psychosis. - Lab Data Lab Results 09/14/24 Range/Units 00:23 Urine Color Yellow Urine Appearance Clear (Clear) Urine pH 5.5 (5.0-8.0) Ur Specific [place] 1.023 (1.001-1.035) Urine Protein Negative (Negative) Urine Glucose (UA) Negative (Negative) Urine Ketones Negative (Negative) Urine Blood Negative (Negative) Urine Nitrite Negative (Negative) Urine Bilirubin Negative (Negative) Urine Urobilinogen 6.0 (<2.0) mg/dL Ur Leukocyte Esterase Negative (Negative) Urine Opiates Screen Not Detected (NotDetected) Ur Oxycodone Screen Not Detected (NotDetected) Urine Methadone Screen Not Detected (NotDetected) Ur Barbiturates Screen Not Detected (NotDetected) U Tricyclic Antidepress Not Detected (NotDetected) Ur Phencyclidine Scrn Not Detected (NotDetected) Ur Amphetamines Screen Not Detected (NotDetected) U Methamphetamines Scrn Not Detected (NotDetected) U Benzodiazepines Scrn Not Detected (NotDetected) Urine Cocaine Screen Not Detected (NotDetected) U Marijuana (THC) Screen Detected H (NotDetected) Disposition Clinical Impression: Acute psychosis Disposition: TRANSFER TO PSYCH HOSP/UNIT Referrals: None,Stated [REFERRING] - 1-2 days
[2024-09-14 00:49] LABS: Appearance,Urine Clear (Clear); Bilirubin,Urine Negative (Negative); Blood,Urine Negative (Negative); Color,Urine Yellow; Glucose,Urine (UA) Negative (Negative); Ketones,Urine Negative (Negative); Leukocyte Esterase,Urine Negative (Negative); Nitrite,Urine Negative (Negative); PH, Urine 5.5 (5.0-8.0); Protein,Urine Negative (Negative); Specific Gravity,Urine 1.023 (1.001-1.035)
[2024-09-14 01:16] LABS: Amphetamine Screen,Urine Not Detected (NotDetected); Barbiturate Screen,Urine Not Detected (NotDetected); Benzodiazepines Screen,Urine Not Detected (NotDetected); Cocaine Screen,Urine Not Detected (NotDetected); Methadone Screen, Urine Not Detected (NotDetected); Opiate Screen,Urine Not Detected (NotDetected); Oxycodone Screen, Urine Not Detected (NotDetected); Phencyclidine Screen,Urine Not Detected (NotDetected); Tricyclic Antidepressant,Urine Not Detected (NotDetected); Urn Cannabinoid Scrn Detected (NotDetected)
[2024-09-14] MEDS: LORazepam 1 MG TAB PO STA (01:46)
[2024-09-14] MEDS: LORazepam 2 MG/ML INJ IM STA (01:46)
[2024-09-14] MEDS ORDERED: MAG HYDROX/AL HYDROX/SIMETH 355 ML BOTTLE PO PRN (03:46)
[2024-09-14] MEDS ORDERED: traZODone HCL 50 MG TAB PO PRN (03:46)
[2024-09-14] MEDS ORDERED: LORazepam 2 MG/ML INJ IM PRN (03:46)
[2024-09-14] MEDS ORDERED: ZIPRASIDONE 20 MG VIAL IM PRN (03:46)
[2024-09-14] MEDS ORDERED: MAGNESIUM HYDROXIDE 2,400 MG/30 ML CUP PO PRN (03:46)
[2024-09-14] MEDS ORDERED: IBUPROFEN 600 MG TAB PO PRN (03:46)
[2024-09-14] MEDS: ACETAMINOPHEN TAB 325 MG TAB PO PRN (04:33)
[2024-09-14] MEDS: CALCIUM CARBONATE 500 MG CHEWABLE PO PRN (06:43)
[2024-09-14] MEDS: NICOTINE 14MG/24HR PATCH TRANSDERM SCH (08:27)
--- NOTE | 2024-09-14 12:37 | P.HP ---
Psychiatric H&P - . H&P Date: 09/14/24 History & Physical: Allergies Allergy/AdvReac Type Severity Reaction Status Date / Time No Known Allergies Allergy Verified 09/13/24 23:50 Vital Signs Temp 98.4 F 09/14/24 04:46 Pulse 94 09/14/24 04:46 Resp 18 09/14/24 04:46 BP 120/77 09/14/24 04:46 Pulse Ox 100 09/14/24 04:46 FiO2 Intake & Output 09/13/24 09/14/24 09/14/24 18:59 06:59 18:59 Weight 135.426 kg Laboratory Last Values Urine Color Yellow 09/14/24 00:23 Urine Appearance Clear (Clear) 09/14/24 00:23 Urine pH 5.5 (5.0-8.0) 09/14/24 00:23 Ur Specific [place] 1.023 (1.001-1.035) 09/14/24 00:23 Urine Protein Negative (Negative) 09/14/24 00:23 Urine Glucose (UA) Negative (Negative) 09/14/24 00:23 Urine Ketones Negative (Negative) 09/14/24 00:23 Urine Blood Negative (Negative) 09/14/24 00:23 Urine Nitrite Negative (Negative) 09/14/24 00:23 Urine Bilirubin Negative (Negative) 09/14/24 00:23 Urine Urobilinogen 6.0 mg/dL (<2.0) 09/14/24 00:23 Ur Leukocyte Esterase Negative (Negative) 09/14/24 00:23 Urine Opiates Screen Not Detected (NotDetected) 09/14/24 00:23 Ur Oxycodone Screen Not Detected (NotDetected) 09/14/24 00:23 Urine Methadone Screen Not Detected (NotDetected) 09/14/24 00:23 Ur Barbiturates Screen Not Detected (NotDetected) 09/14/24 00:23 U Tricyclic Antidepress Not Detected (NotDetected) 09/14/24 00:23 Ur Phencyclidine Scrn Not Detected (NotDetected) 09/14/24 00:23 Ur Amphetamines Screen Not Detected (NotDetected) 09/14/24 00:23 U Methamphetamines Scrn Not Detected (NotDetected) 09/14/24 00:23 U Benzodiazepines Scrn Not Detected (NotDetected) 09/14/24 00:23 Urine Cocaine Screen Not Detected (NotDetected) 09/14/24 00:23 U Marijuana (THC) Screen Detected (NotDetected) H 09/14/24 00:23 Influenza Type A (PCR) Not Detected (Not Detectd) 09/14/24 01:26 Influenza Type B (PCR) Not Detected (Not Detectd) 09/14/24 01:26 RSV (PCR) Not Detected (Not Detectd) 09/14/24 01:26 SARS-CoV-2 (PCR) Not Detected (Not Detectd) 09/14/24 01:26 09/14/24 11:26 IDENTIFYING DATA: Patient is a 39-year-old single male, recently homeless CHIEF COMPLAINT: Psychosis HPI: Patient presented to the hospital with auditory hallucinations. EPS evaluation revealed, "Patient presents to ED with his brother. States he is poisoned with metal. Brother reports patient microwaved a can of soup with the lid on and now patient believes the metal is inside him. He then states "I am also hearing voices". reports he quit taking his meds because they made the voices worse. patient denies suicide, admits to past thoughts and reports that his mother from suicide and his brother confirmed this. When asked if he ever attempted suicide he first said no then said yes and said he doesnt want to talk about it. Patient thought blocking. When questioned if he was homicidal patient states "only to people that want to kill me. I dont know. God knows. Sonu Knows. I mock God and tell him to fuck off everytime he mocks me". When questioned if the voices were command in nature patient states "I smell pee". Patient admits to needing help with the voices. Cooperative with this flex o writer operator and trusting with his brother. Brother made a statement about going to patient's camper and retriving some items, including slippers for the patient. He states "I peed on those slippers and licked it off. the angels were there. I pissed and shit all over that camper. The voices said to do it." patient states he can not go back to that camper, feels unsafe and states "I became homeless two hours ago"." Patient seen and evaluated on the unit and was seen asleep in bed he requested flex o writer operator to return in an hour. Upon second pass, he states feeling tired. Patient notably is a poor historian and was not forthcoming with inform ation, often with paucity of thought content. He states feeling like he was being poisoned and that he still has metal in his stomach. He states he is unsure why he is here at the psychiatric hospital as he needs more medical care. He reports auditory hallucinations that are command in nature and states they are threatening flex o writer operator at the moment. Went through patient's medications with him as he has trialed several psychotropic medications and he was agreeable with starting Seroquel as he has not tried this med previously. He reports a history of worsening in his voices with psychotropic medications and other various adverse effects including akathisia and muscle stiffness. Patient denies any suicidal or homicidal ideations intent or plan. At this time patient denies any visual hallucinations. Patient denies any flight of ideas racing thoughts and increased in goal directed behavior. PAST PSYCHIATRIC HISTORY: Patient has a history of schizoaffective disorder, bipolar type, antisocial personality disorder. Patient denies being on any psychiatric medications. He recently discontinued his psychotropic medications including Lexapro 5 mg, prazosin 2 mg as needed, Trileptal 300 mg twice daily. He previously has tried Latuda, trazodone, Zyprexa, Seroquel, Risperdal, Topamax, Geodon, Abilify, Invega. Patient was last seen in this facility in 2014. He follows with [facility]. Patient denies any history of suicide attempts in the past. PMH: as per ER note ALLERGIES: as per EMR SUBSTANCE USE HISTORY: UDS positive for cannabis FAMILY PSYCHIATRIC/SUBSTANCE USE HISTORY: Mother reportedly completed suicide SOCIAL HISTORY: Patient was recently living in a camper on his friend's property however is newly homeless. He is single however has his brother for support MENTAL STATUS EXAM: General Appearance: Patient appears to be stated age is sedated and largely uncooperative. Patient appears to have poor hygiene and grooming. Behavior: Patient is seated without any agitated behavior. Speech: Patient's speech is fluent and nonpressured. Mood/Affect: Patient reports their mood is "all right", affect is congruent and constricted. Suicidality/Homicidality: Patient denies having any homicidal ideation intent or plan. Denies any suicidal ideations intent or plan Perceptions: Patient denies any visual hallucinations however reports auditory hallucinations that are command in nature, threatening flex o writer operator Though content/process: There is paucity of thought content and paranoia, nonbizarre delusions Memory and concentration: AOX3, grossly intact for the purposes of this session. Can spell "WORLD" backwards Judgment and insight: Poor STRENGTHS/WEAKNESSES: strength is that patient is resilient. Weakness is that patient has poor judgment and is impulsive INTELLECT: Average IMPRESSIONS: Schizoaffective disorder, bipolar type History of antisocial personality disorder Cannabis use disorder PLAN: -Patient is admitted under voluntary status to [facility] for stabilization of psychiatric symptoms and safety. Patient has signed adult voluntary form and medication consent and is placed in patient's chart. -Medications : Start Seroquel 25 mg twice daily for psychosis -Ativan and Geodon PRN for agitation/aggression -Patient was counselled on substance abuse and desired to cut back on use -Patient was informed of the risks, benefits and side effects of the medication and patient verbally consented to taking the medications. Patient signed med consent form and was placed in chart. -Internal Medicine consult to perform medical evaluation and physical. -NRT -nicotine patch -SW on board for discharge planning. Encourage patient to participate in groups to work on coping skills.
[2024-09-14] MEDS: QUEtiapine 25 MG TAB PO SCH (13:41)
--- NOTE | 2024-09-15 11:21 | P.PN ---
Progress Note - Text Progress Note Date: 09/15/24 Interval History: Patient was seen laying in bed and was directable and agreeable to speak with medical underwriter in his room. He states feeling "so-so" however does report feeling a bit better than yesterday. She continues to display thought blocking with delayed responses. He states the voices are "driving me crazy" however does not report them being command in nature today. He states he has not yet spoken to his brother. He reports poor sleep due to hot flashes. He states refusing the blood draw this morning given he did not know what it was for and that staff are not God however is agreeable with getting this done this afternoon. He reports feeling like the medications are working on "half of my body". At this time patient denies any suicidal or homicidal ideations, intent or plan. Patient denies any visual hallucinations. Patient denies any side effects from the medications and has been compliant with meds. Mental Status Exam: General Appearance: Patient appears to be stated age is sleepy but directable, and somewhat cooperative. Behavior: Patient is calmly laying without any agitated behavior. Speech: Patient's speech is fluent and nonpressured. Mood/Affect: Mood is "so-so", affect is congruent and constricted. Suicidality/Homicidality: Patient denies having any suicidal or homicidal ideation intent or plan. Perceptions: Patient denies any visual hallucinations however reports auditory hallucinations Though content/process: There is evidence of thought blocking and paranoia, bizarre delusions Memory and concentration: AOX3, grossly intact for the purposes of this session Judgment and insight: Improving mildly Assessment Schizoaffective disorder, bipolar type History of antisocial personality disorder Cannabis use disorder Plan: -Patient continues to meet criteria for inpatient psychiatric admission for symptom stabilization and safety. Patient has signed adult voluntary form and medication consent and was placed in patient's chart. -Medications: Increase Seroquel to 50 mg twice daily for psychosis -When necessary Ativan and Geodon for agitation/aggression. -Labs: Ordered, patient encouraged to complete -SW on board for discharge planning. Encouraged the patient to participate in milieu. Anticipate discharge sometime next week pending stabilization and psychosis
[2024-09-15 13:02] LABS: Basophils % (A) 1 %; Eosinophils # (A) 0.1 k/uL (0-0.7); Eosinophils % (A) 2 %; HCT 45.1 % (39.0-53.0); HGB 14.4 gm/dL (13.0-17.5); Lymphocytes # (A) 1.7 k/uL (1.0-4.8); Lymphocytes % (A) 27 %; MCH 30.5 pg (25.0-35.0); MCHC 31.9 g/dL (31.0-37.0); MCV 95.6 fL (80.0-100.0); Monocytes # (A) 0.5 k/uL (0-1.0); Monocytes % (A) 8 %; Neutrophils # (A) 3.6 k/uL (1.3-7.7); Neutrophils % (A) 60 %; Platelet Count 193 k/uL (150-450); RBC 4.72 m/uL (4.30-5.90); RDW 12.4 % (11.5-15.5); WBC 6.1 k/uL (3.8-10.6)
[2024-09-15 13:13] LABS: ALT 48 U/L (4-49); AST 37 U/L (17-59); African American GFR (CKD) >90 (>60 ml/min/1.73 sqM); Albumin 4.3 g/dL (3.5-5.0); Alkaline Phosphatase 75 U/L (38-126); Anion Gap 5 mmol/L; Bilirubin, Delta 0.1 mg/dL (0.0-0.2); Bilirubin,Unconjugated 0.3 mg/dL (0.0-1.1); Blood Urea Nitrogen 18 mg/dL (9-20); Calcium 9.5 mg/dL (8.4-10.2); Carbon Dioxide 30 mmol/L (22-30); Chloride 104 mmol/L (98-107); Glucose 84 mg/dL (74-99); Non-African American GFR(CKD) >90 (>60 ml/min/1.73 sqM); Potassium 4.5 mmol/L (3.5-5.1); Sodium 139 mmol/L (137-145); Total Bilirubin 0.4 mg/dL (0.2-1.3)
[2024-09-15 18:51] LABS: Chol/HDL Ratio 5.24 Ratio; LDL Cholesterol,Calculated 111.8 mg/dL (0.0-131.0)
[2024-09-15] MEDS: QUEtiapine 50 MG TAB PO SCH (21:01)
--- NOTE | 2024-09-16 10:29 | P.PN ---
Progress Note - Text Progress Note Date: 09/16/24 Interval History: Patient was seen laying in bed and was directable and agreeable to speak with speech writer in his room. He continues to display thought blocking with delayed responses. He expressed no concerns and has been adherent with medications, requiring no as needed medications. He is often seen isolative in his room and has not been attending groups. Patient states he just needs to rest and was somnolent during encounter. He completed lab work yesterday. He continues to display delusional thoughts as evidenced by patient asking about serving humans yesterday with dinner. Patient denies any side effects from the medications and has been compliant with meds. Mental Status Exam: General Appearance: Patient appears to be stated age is sleepy, requiring frequent redirection. Behavior: Patient is calmly laying without any agitated behavior. Speech: Patient's speech is fluent and nonpressured. Mood/Affect: Mood is improving mildly, affect is congruent and constricted. Suicidality/Homicidality: Patient denies having any suicidal or homicidal ideation intent or plan. Perceptions: Patient denies any visual hallucinations and reports auditory hallucinations Though content/process: There is evidence of thought blocking and delusional thought content with disorganization Memory and concentration: AOX3, grossly intact for the purposes of this session Judgment and insight: Improving mildly Assessment Schizoaffective disorder, bipolar type History of antisocial personality disorder Cannabis use disorder Plan: -Patient continues to meet criteria for inpatient psychiatric admission for symptom stabilization and safety. Patient has signed adult voluntary form and medication consent and was placed in patient's chart. -Medications: Increase Seroquel to 50 mg daily and 100 mg at bedtime for psychosis, trazodone 50 mg as needed at bedtime for insomnia -When necessary Ativan and Geodon for agitation/aggression. -Labs: Reviewed, lipid panel mildly elevated however will defer to patient's PCP for management -SW on board for discharge planning. Encouraged the patient to participate in milieu.
[2024-09-16] MEDS: QUEtiapine 100 MG TAB PO SCH (20:59)
[2024-09-17] MEDS: QUEtiapine 50 MG TAB PO SCH (08:23)
--- NOTE | 2024-09-17 11:39 | P.PN ---
Progress Note - Text Progress Note Date: 09/17/24 Interval History: Patient was seen laying in bed and was directable and agreeable to speak with press writer in the room. Patient was notably irritable with press writer, largely uncooperative with interview. He reports nightmares overnight with violent themes which he attributes to Seroquel. Patient notably has expressed this adverse effect with several antipsychotic medications in the past and thus is questionable if this is allergic concern as he is often seen asleep during the day. Patient did state the Seroquel was helpful with the voices at nighttime however continues to hear them during the day. Patient would not give details on what the voices were saying at this moment. There is still evidence of thought blocking. He has not spoken to any family or friends while being here. He expressed issues with the food here not being cooked all the way. Attempted to discussed with patient several mood stabilizers however he states "just pick 1". Patient has been adherent with psychotropic medications. Mental Status Exam: General Appearance: Patient appears to be stated age is alert, however largely uncooperative. Behavior: Patient is calmly laying without any agitated behavior. Speech: Patient's speech is brief, monotone and low volume. Mood/Affect: Mood is irritable, affect is congruent and constricted. Suicidality/Homicidality: Patient denies having any suicidal or homicidal ideation intent or plan. Perceptions: Patient denies any visual hallucinations however continues to express auditory hallucinations Though content/process: There is thought blocking with disorganization and thoughts Memory and concentration: AOX3, grossly intact for the purposes of this session Judgment and insight: poor Assessment Schizoaffective disorder, bipolar type History of antisocial personality disorder Cannabis use disorder Plan: -Patient continues to meet criteria for inpatient psychiatric admission for symptom stabilization and safety. Patient has signed adult voluntary form and medication consent and was placed in patient's chart. -Medications: Continue Seroquel 50 mg daily and 100 mg at bedtime for psychosis, add Depakote 250 mg twice daily for mood stabilization, continue trazodone 50 mg as needed at bedtime for insomnia -When necessary Ativan and Haldol for agitation/aggression. -Labs: Reviewed, lipid panel mildly elevated -SW on board for discharge planning. Encouraged the patient to participate in milieu.
[2024-09-17] MEDS: DIVALPROEX 250 MG TABLET.DR PO SCH (21:37)
--- NOTE | 2024-09-18 11:38 | P.PN ---
Progress Note - Text Progress Note Date: 09/18/24 Interval history: Patient was seen laying in his bed today and was directable and agreeable to speak with senior technical writer. Patient was fairly concrete, fairly evasive during conversation. He unseen he only answered a couple of questions. He asked senior technical writer if "you guys are experimenting on me?". He was agreeable to continue on with the medications, has very poor insight and judgment. At this time patient denies any suicidal or homicidal ideations intent or plan. Denies any Auditory or visual hallucinations. Patient denies any side effects from the medications and has been compliant with meds. Mental status exam: General Appearance: Patient appears to be laying in bed, blankets covering him, stated age is alert, fairly evasive. Behavior: No agitated behavior. Patient is calm and directable evasive, Speech: Patient's speech is fluent and nonpressured. [place] Mood/Affect: Mood is improving mildly, affect is congruent and constricted. Suicidality/Homicidality: Patient denies having any suicidal or homicidal ideation intent or plan. Perceptions: Patient denies any auditory or visual hallucinations. Though content/process: There is no evidence of any delusional thought content and thought process is linear and goal-directed. Poverty of content Memory and concentration: AOX3, grossly intact for the purposes of this session Judgment and insight: Poor Assessment/Plan: Continue with current diagnosis. Patient continues to meet criteria for inpatient psychiatric admission for symptom stabilization and safety. Patient will be maintained on current psychotropic medication regimen. Monitor for medication compliance and for any psychotropic medication side effects. Will continue to monitor ongoing response to treatment. Encouraged participation in milieu.
--- NOTE | 2024-09-19 10:12 | P.PN ---
Progress Note - Text Progress Note Date: 09/19/24 Interval history: Patient was seen laying in his bed today and was directable and agreeable to speak with database report writer. Patient was fairly concrete. He continues to be fairly evasive with database report writer vague. He states that "every time I open my mouth you guys use it against me". He did not want to answer many questions. He states that he refuses medications last night and will continue to refuse medications. Has very poor insight and judgment. Did not answer many other questions. Mental status exam: General Appearance: Patient appears to be laying in bed, blankets covering him, stated age is alert, fairly evasive. Behavior: No agitated behavior. Patient is calm and directable evasive, paranoid Speech: Patient's speech is fluent and nonpressured. [place] Mood/Affect: Mood is improving mildly, affect is congruent and constricted. Suicidality/Homicidality: Able to assess Perceptions: Unable to assess Though content/process: [place], poverty of content Memory and concentration: Unable to assess Judgment and insight: Poor Assessment/Plan: Continue with current diagnosis. Patient continues to meet criteria for inpatient psychiatric admission for symptom stabilization and safety. Patient will be maintained on current psychotropic medication regimen. Monitor for medication compliance and for any psychotropic medication side effects. Will continue to monitor ongoing response to treatment. Encouraged participation in milieu.
--- NOTE | 2024-09-20 12:01 | P.PN ---
Progress Note - Text Progress Note Date: 09/20/24 Interval History: Patient was seen laying in bed and was directable and agreeable to speak with instructional writer in the room. Patient continues to be guarded and vague with responses, stating "I do not want to talk about that" in regards to several questions including auditory hallucinations. Patient over the weekend was intermittently adherent with his psychotropic medications however was adherent with them yesterday and overnight. He reports now waiting to take his medications. He reports being homeless and wishes to be "discharged to the streets". He vehemently denies any suicidal or homicidal ideations, intent or plan. When asked about the auditory hallucinations, he declined to answer, stating mute however he did not appear internally preoccupied during encounter. Patient denies any side effects from the medications and has been compliant with meds. Mental Status Exam: General Appearance: Patient appears to be stated age is fatigued and uncooperative. Behavior: Patient is calmly laying without any agitated behavior. Eye contact poor Speech: Patient's speech is fluent and nonpressured. Mood/Affect: Mood is improving mildly, affect is congruent and constricted. Suicidality/Homicidality: Patient denies having any suicidal or homicidal ideation intent or plan. Perceptions: Patient denies any visual hallucinations however he would not respond to questioning regarding his auditory hallucinations, patient was not observed to be responding to internal stimuli during encounter however Though content/process: There is evidence of persecutory delusions and paranoia Memory and concentration: AOX3, grossly intact for the purposes of this session Judgment and insight: poor Assessment Schizoaffective disorder, bipolar type History of antisocial personality disorder Cannabis use disorder Plan: -Patient continues to meet criteria for inpatient psychiatric admission for symptom stabilization and safety. Patient has signed adult voluntary form and medication consent and was placed in patient's chart. -Medications: Increase Depakote to 500 mg twice daily for mood stabilization, continue Seroquel 50 mg daily and 100 mg at bedtime for psychosis, trazodone 50 mg as needed at bedtime for insomnia -When necessary Ativan and Geodon for agitation/aggression. -Labs: Reviewed, lipid panel mildly elevated -SW on board for discharge planning. Encouraged the patient to participate in milieu. Anticipate discharge to assisted later this week pending stabilization in mood and psychosis
--- NOTE | 2024-09-20 12:44 | P.MDCNMH ---
History of Present Illness H&P Date: 09/20/24 Patient is a 39-year-old male with history of hypertension currently in behavioral health unit. [facility] physicians consulted for medical management. Vital signs reviewed, within normal limits. WBC 6.1, hemoglobin 14.4, potassium 4.5, creatinine 0.83, total cholesterol 176, LDL 111, TSH 2.42, toxicology positive for marijuana. Patient denies any alcohol use. He claims that he smokes cigarette but unable to specify how much. Also smokes marijuana. Pertinent positives and negatives as discussed in HPI, a complete review of systems was performed and all other systems are negative. Patient seen and examined at bedside. Vital signs reviewed General: nontoxic, no distress, appears at stated age, morbidly obese Derm: warm, dry Head: atraumatic, normocephalic, symmetric Eyes: EOMI, no lid lag, anicteric sclera, pupils equal round reactive to light ENT: Nose and ears atraumatic Neck: No thyromegaly, supple Mouth: no lip lesion, mucus membranes moist Cardiovascular: S1S2 reg, no murmur, no edema Lungs: clear to auscultation bilateral, no rhonchi, no rales, no wheeze, no accessory muscle use Abdominal: soft, nontender to palpation, no guarding, no appreciable organomegaly Ext: no gross muscle atrophy, muscle strength muscle strength 5 out of 5 in all 4 extremities, no contractures Neuro: CN II-XII grossly intact Psych: Alert, oriented, restricted affect Assessment/Plan: History of hypertension -Unclear if he was taking any medications -Monitor off of antihypertensives Morbid obesity -Outpatient structured weight loss program Rest of the psychiatric care per primary team Thank you for allowing us to participate in the care of this pleasant patient. Do not hesitate to contact us with questions. Someone can be reached from the [facility] Physicians hospitalist group all hours of the day at [phone] or via [employer]. Past Medical History Past Medical History: Hypertension History of Any Multi-Drug Resistant Organisms: MRSA Date of last positivie culture/infection: 04/06/2018 MDRO Source:: buttock wound Past Surgical History: No Surgical Hx Reported Additional Past Surgical History / Comment(s): plastic surgery for aguirre, fingers sewed back on, Past Anesthesia/Blood Transfusion Reactions: No Reported Reaction Past Psychological History: Schizophrenia Smoking Status: Current every day smoker Past Alcohol Use History: Occasional Past Drug Use History: Marijuana - Past Family History Mother Additional Family Medical History / Comment(s): schizophrenia- committed suicide Father Additional Family Medical History / Comment(s): alcoholic Medications and Allergies Home Medications Medication Instructions Recorded Confirmed Type Albuterol Inhaler [Ventolin Hfa 1 - 2 puff INHALATION RT-Q6H PRN 11/04/18 11/04/18 History Inhaler] Baclofen [Lioresal] 10 mg PO BID 11/04/18 11/04/18 History Cholecalciferol [Vitamin D3] 5,000 unit PO DAILY 11/04/18 11/04/18 History Fenofibrate,Micronized 43 mg PO DAILY 11/04/18 11/04/18 History [Fenofibrate] Ketorolac [Toradol] 10 mg PO Q6HR PRN 11/04/18 11/04/18 History atenoloL [Atenolol] 25 mg PO BID 11/04/18 11/04/18 History lisinopriL [Zestril] 10 mg PO DAILY 11/04/18 11/04/18 History Allergies Allergy/AdvReac Type Severity Reaction Status Date / Time No Known Allergies Allergy Verified 09/13/24 23:50 Cranial Nerve Examination - Cranial Nerves Cranial Nerve II- Optic: Intact Cranial Nerve III- Oculomotor: Intact Cranial Nerve IV- Trochlear: Intact Cranial Nerve V- Trigeminal: Intact Cranial Nerve - Abducens: Intact Cranial Nerve VII- Facial: Intact Cranial Nerve VIII- Auditory: Intact Cranial Nerve IX- Glossopharyngeal: Intact Cranial Nerve X- Vagus: Intact Cranial Nerve XI- Accessory: Intact Cranial Nerve XII- Hypoglossal: Intact Results CBC & Chem 7: 09/15/24 12:22 09/15/24 12:22
[2024-09-20] MEDS: DIVALPROEX 500 MG TABLET.DR PO SCH (21:11)
--- NOTE | 2024-09-21 12:19 | P.PN ---
Progress Note - Text Progress Note Date: 09/21/24 Interval History: Patient was seen laying on the floor in his room and was directable and agreea ble to speak with radio script writer in his room. Patient displays bizarre behaviors and was more religiously preoccupied. Patient states he was sleeping on the ground due to incontinence however there were no visible soilage on the bed sheets. Patient states that this occurred 2 nights ago however was unable to state why he was on the floor today. Patient states the devil has been entering different people's bodies including his as he is "a sinner". When asked about the voices today he mentions "they are fine" and appeared to be minimizing these concerns as evidenced by him thought blocking. Patient reportedly had to be from a peer yesterday due to agitation and patient today reports hearing the devil mumble a curse word at him and that he does not feel like this came from his peer. At this time patient denies any suicidal or homicidal ideations, intent or plan. Patient denies any side effects from the medications and has been compliant with meds. Mental Status Exam: General Appearance: Patient appears to be stated age is fatigued but directable. Behavior: Patient is calmly laying without any agitated behavior. Speech: Patient's speech is fluent and nonpressured. Mood/Affect: Mood is improving mildly, affect is congruent and constricted. Suicidality/Homicidality: Patient denies having any suicidal or homicidal ideation intent or plan. Perceptions: Patient denies any visual hallucinations however reports auditory hallucinations but would not dive on the content Though content/process: There is evidence of evangelical preoccupation with disorganization in behaviors and thoughts Memory and concentration: AOX3, grossly intact for the purposes of this session Judgment and insight: Improving mildly Assessment Schizoaffective disorder, bipolar type History of antisocial personality disorder Cannabis use disorder Plan: -Patient continues to meet criteria for inpatient psychiatric admission for symptom stabilization and safety. Patient has signed adult voluntary form and medication consent and was placed in patient's chart. -Medications: Increase Seroquel to 50 mg daily and 150 mg at bedtime for psychosis, continue Depakote 500 mg twice daily for mood stabilization, trazodone 50 mg as needed at bedtime for insomnia -When necessary Ativan and Geodon for agitation/aggression. -Labs: Reviewed, lipid panel mildly elevated -SW on board for discharge planning. Encouraged the patient to participate in milieu.
[2024-09-21] MEDS: LORazepam 1 MG TAB PO PRN (16:08)
[2024-09-21] MEDS: ZIPRASIDONE 20 MG CAP PO PRN (17:34)
[2024-09-21] MEDS: chlorproMAZINE 25 MG TAB PO STA (18:58)
[2024-09-21] MEDS: QUEtiapine 50 MG TAB PO SCH (21:42)
[2024-09-22] MEDS ORDERED: chlorproMAZINE 25 MG/ML 2 ML AMP IM PRN (08:08)
[2024-09-22] MEDS: QUEtiapine 50 MG TAB PO SCH (09:11)
--- NOTE | 2024-09-22 13:41 | P.PN ---
Progress Note - Text Progress Note Date: 09/22/24 Interval History: Patient was seen wandering the halls and was directable and agreeable to speak with justowriter operator in his room. Patient yesterday received as needed Geodon due to agitation and bizarre behaviors on the unit. This was ineffective and patient continued to display paranoia and received Thorazine 100 mg p.o. Patient today states peers on the unit are triggers for him. He was strongly encouraged to keep his distance and maintain his boundaries and did not act on aggression. Patient was fixated on being discharge, displaying poor insight as to the reasons he is here stating that his roommate lied to get him here. Discussed with patient the things he needs to do in order to be discharged including taking his medications as prescribed and maintaining his outburst on the unit. He was not religiously preoccupied today and stated that he did not talk to the devil today. He states appetite is okay. He reports quieting in his voices, specifically down to 1-2 voices, however paradoxically states that this is more distressing for him as he is used to the noise. Patient denies any side effects from the medications and has been compliant with meds. Mental Status Exam: General Appearance: Patient appears to be stated age is more alert today, cooperative. Behavior: Patient is calmly standing without any agitated behavior. Speech: Patient's speech is fluent and nonpressured. Mood/Affect: Mood is improving mildly, affect is congruent and constricted. Suicidality/Homicidality: Patient denies having any suicidal or homicidal ideation intent or plan. Perceptions: Patient denies any visual hallucinations however reports auditory hallucinations, lessening in intensity Though content/process: There is disorganization and thoughts and behaviors Memory and concentration: AOX3, grossly intact for the purposes of this session Judgment and insight: poor Assessment Schizoaffective disorder, bipolar type History of antisocial personality disorder Cannabis use disorder Plan: -Patient continues to meet criteria for inpatient psychiatric admission for symptom stabilization and safety. Patient has signed adult voluntary form and medication consent and was placed in patient's chart. -Medications: Increase Seroquel to 50 mg daily and 200 mg at bedtime for psychosis, continue Depakote 500 mg twice daily for mood stabilization, trazodone 50 mg as needed at bedtime for insomnia -When necessary Ativan and thorazine for agitation/aggression. -Labs: Reviewed, lipid panel mildly elevated -SW on board for discharge planning. Encouraged the patient to participate in milieu. Anticipate discharge early next week pending stabilization in psychosis
[2024-09-22] MEDS: QUEtiapine 200 MG TAB PO SCH (21:30)
[2024-09-23] MEDS: chlorproMAZINE 25 MG TAB PO PRN (12:06)
--- NOTE | 2024-09-23 12:07 | P.PN ---
Progress Note - Text Progress Note Date: 09/23/24 Interval History: Patient was seen in his room on the floor and was directable and agreeable to speak with remote mortgage underwriter in his room. He states he was on the floor due to stretching. He continues to display bizarre thoughts and behaviors and staff noted patient to be responding internally overnight. He states the voices are encouraging today. He reflected on his past issues with his daughter and feels like this is God punishing him for not being there for her. Patient was fixated on where to go once discharged and requested remote mortgage underwriter to have a three-way conversation with his brother Jaden as he is his only support system. Film Cleaner spoke with both Jaden and patient and Jaden expressed concerns with patient not being able to live around other people and him currently being homeless. Patient previously lived with someone however he was not able to return there given his past behaviors. Jaden states that patient can become violent when living on the streets. Staff reported patient to have attempted groups recently although he did not participate. At this time patient denies any suicidal or homicidal ideations, intent or plan. Patient denies any side effects from the medications and has been compliant with meds. Mental Status Exam: General Appearance: Patient appears to be stated age is alert, directable, and cooperative. Behavior: Patient is calmly standing without any agitated behavior. Speech: Patient's speech is fluent and nonpressured, talkative. Mood/Affect: Mood is improving mildly, affect is congruent and constricted. Suicidality/Homicidality: Patient denies having any suicidal or homicidal ideation intent or plan. Perceptions: Patient denies any visual hallucinations and reports auditory hallucinations, more encouraging today Though content/process: Patient continues to display bizarre behaviors and disorganized thoughts, some jewish preoccupation today Memory and concentration: AOX3, grossly intact for the purposes of this session Judgment and insight: poor Assessment Schizoaffective disorder, bipolar type History of antisocial personality disorder Cannabis use disorder Plan: -Patient continues to meet criteria for inpatient psychiatric admission for symptom stabilization and safety. Patient has signed adult voluntary form and medication consent and was placed in patient's chart. -Medications: Increase Seroquel to 50 mg daily and 300 mg at bedtime for psychosis, continue Depakote 500 mg twice daily for mood stabilization, trazodone 50 mg as needed at bedtime for insomnia -When necessary Ativan and thorazine for agitation/aggression. -Labs: Depakote level ordered for tomorrow -SW on board for discharge planning. Encouraged the patient to participate in milieu. Anticipate discharge early next week to either long-term or camper on friend[facility] property
[2024-09-23 13:12] VITALS: BMI 40.7
[2024-09-23] MEDS: QUEtiapine 100 MG TAB PO SCH (21:44)
--- NOTE | 2024-09-24 12:59 | P.PN ---
Progress Note - Text Progress Note Date: 09/24/24 Interval History: Patient was seen laying in bed and was directable and agreeable to speak with rewriter in his room. Patient notably was agitated yesterday during group with no overt triggers and required as needed Ativan and Thorazine which were effective. Patient later then apologized to staff member he was agitated with yesterday. Some of these events do appear more behavioral however patient still displays some disorganization and thoughts. He states sleeping better. Depakote level r eturned at 53. He describes the voices as "slithering" and did not appear internally preoccupied during encounter. He states he ate breakfast and that he spoke to his brother again yesterday after the conversation that was had with rewriter earlier yesterday. He expressed no other concerns. At this time patient denies any suicidal or homicidal ideations, intent or plan. Patient denies any side effects from the medications and has been compliant with meds. Mental Status Exam: General Appearance: Patient appears to be stated age is fatigued but directable, and cooperative. Behavior: Patient is calmly laying without any agitated behavior. Speech: Patient's speech is fluent and nonpressured. Mood/Affect: Mood is improving mildly, affect is congruent and constricted. Suicidality/Homicidality: Patient denies having any suicidal or homicidal ideation intent or plan. Perceptions: Patient denies any visual hallucinations however reports auditory hallucinations, less intense than previously Though content/process: There is evidence of disorganized thoughts, paranoia Memory and concentration: AOX3, grossly intact for the purposes of this session Judgment and insight: Historically poor Assessment Schizoaffective disorder, bipolar type History of antisocial personality disorder Cannabis use disorder Plan: -Patient continues to meet criteria for inpatient psychiatric admission for symptom stabilization and safety. Patient has signed adult voluntary form and medication consent and was placed in patient's chart. -Medications: Continue Seroquel 50 mg daily and 300 mg at bedtime for psychosis, depending on patient's presentation over the weekend can possibly increase this occasion as needed. Continue Depakote 500 mg twice daily for mood stabilization, trazodone 50 mg as needed at bedtime for insomnia -When necessary Ativan and Thorazine for agitation/aggression. -Labs: Depakote returned at 53 today -SW on board for discharge planning. Encouraged the patient to participate in milieu. Anticipate discharge back to [facility] on Friday
[2024-09-25 06:44] VITALS: RESP 18; TEMP 97.2
--- NOTE | 2024-09-25 18:24 | P.PN ---
Progress Note - Text Interval History: Patient was resting in bed this morning and was directable and agreeable to speak with movie writer. He was visibly frustrated and when asked about his mood stated he was "annoyed". He denied suicidal ideation, intent, and plan. He also denied experiencing auditory hallucinations at this time. He denied homicidal ideation, intent, and plan. He quickly became more agitated and abruptly stood to get out of the bed mumbling "they are going to screw me over". Patient denies any side effects from the medications and has been compliant with meds. Mental Status Exam: General Appearance: Patient appears to be stated age is alert, directable, and minimally cooperative. Behavior: Patient is calmly lying down, quickly became more annoyed and mildly agitated. Speech: Patient's speech is fluent and nonpressured. Mood/Affect: Mood is "annoyed", affect is congruent and constricted. Suicidality/Homicidality: Patient denies having any suicidal or homicidal ideation intent or plan. Perceptions: Patient denies any visual hallucinations and denies any auditory hallucinations at this time. Though content/process: Unable to fully assess thought content given brevity of engagement by patient and thought process is linear and goal-directed. Memory and concentration: AOX3, grossly intact for the purposes of this session Judgment and insight: Improving mildly Assessment Schizoaffective disorder, bipolar type History of antisocial personality disorder Cannabis use disorder Plan: -Patient continues to meet criteria for inpatient psychiatric admission for symptom stabilization and safety. Patient has signed adult voluntary form and medication consent and was placed in patient's chart. -Medications: - Continue Seroquel 50 mg daily and 300 mg at bedtime for psychosis (may increase as needed) - Continue Depakote 500 mg twice daily for mood stabilization - Trazodone 50 mg as needed at bedtime for insomnia -When necessary Ativan and Thorazine for agitation/aggression. -Labs: Most recent Depakote level (53) -SW on board for discharge planning. Encouraged the patient to participate in milieu. Anticipate discharge back to [facility] on Friday
--- NOTE | 2024-09-26 17:37 | P.PN ---
Progress Note - Text Interval History: Patient was in the process of making his bed this morning and was directable and agreeable to speak with advertising copy writer. He described his mood as "tired" then "hungry" and was concerned he missed lunch. Reassured him that it was not yet time for lunch. When asked about experiencing auditory or visual hallucinations he stated "I'm sure there is" but did not want to elaborate further. He denied suicidal ideation, intent, and plan. He denied homicidal ideation, intent, and plan. Patient has been compliant with meds but did share his concern that one of the medications is making him too tired during the day. Mental Status Exam: General Appearance: Patient appears to be stated age is alert, directable, and minimally cooperative. Behavior: Patient is standing up making the bed, no psychomotor agitation or retardation. Speech: Patient's speech is fluent and nonpressured. Mood/Affect: Mood is "tired", affect is congruent and constricted. Suicidality/Homicidality: Patient denies having any suicidal or homicidal ideation intent or plan. Perceptions: Patient stated "I'm sure there is" when asked about hallucinations. Though content/process: Thought process is linear and goal-directed. Memory and concentration: AOX3, grossly intact for the purposes of this session Judgment and insight: Improving mildly Assessment Schizoaffective disorder, bipolar type History of antisocial personality disorder Cannabis use disorder Plan: -Patient continues to meet criteria for inpatient psychiatric admission for symptom stabilization and safety. Patient has signed adult voluntary form and medication consent and was placed in patient's chart. -Medications: - Continue Seroquel 50 mg daily and 300 mg at bedtime for psychosis (may increase as needed) - Continue Depakote 500 mg twice daily for mood stabilization - Trazodone 50 mg as needed at bedtime for insomnia -When necessary Ativan and Thorazine for agitation/aggression. -Labs: Most recent Depakote level (53) -SW on board for discharge planning. Encouraged the patient to participate in milieu. Anticipate discharge back to [facility] on Friday
[2024-09-27 09:09] VITALS: BP 123/80; PULSE 90
--- NOTE | 2024-09-27 13:07 | P.DS ---
Providers Date of admission: 09/14/24 03:44 Expected date of discharge: 09/27/24 Attending physician: Oneida Gunter MD Consults: 09/14/24 03:46 Consult Physician Routine Consulting Provider: Jaxon Freeman Consult Reason/Comments: medical H&P Do you want consulting provider notified?: Yes Primary care physician: [facility] - Discharge Diagnosis(es) (1) Schizoaffective disorder, bipolar type Status: Acute Priority: High (2) Antisocial personality disorder Status: Acute Priority: Medium (3) Cannabis use disorder Status: Acute Priority: Medium Hospital Course: Admission HPI: Admission note was completed by bid writer "Patient presented to the hospital with auditory hallucinations. EPS evaluation revealed, "Patient presents to ED with his brother. States he is poisoned with metal. Brother reports patient microwaved a can of soup with the lid on and now patient believes the metal is inside him. He then states "I am also hearing voices". reports he quit taking his meds because they made the voices worse. patient denies suicide, admits to past thoughts and reports that his mother from suicide and his brother confirmed this. When asked if he ever attempted suicide he first said no then said yes and said he doesnt want to talk about it. Patient thought blocking. When questioned if he was homicidal patient states "only to people that want to kill me. I dont know. God knows. Sonu Knows. I mock God and tell him to fuck off everytime he mocks me". When questioned if the voices were command in nature patient states "I smell pee". Patient admits to needing help with the voices. Cooperative with this bid writer and trusting with his brother. Brother made a statement about going to patient's camper and retriving some items, including slippers for the patient. He states "I peed on those slippers and licked it off. the angels were there. I pissed and shit all over that camper. The voices said to do it." patient states he can not go back to that camper, feels unsafe and states "I became homeless two hours ago"." Patient seen and evaluated on the unit and was seen asleep in bed he requested bid writer to return in an hour. Upon second pass, he states feeling tired. Patient notably is a poor historian and was not forthcoming with information, often with paucity of thought content. He states feeling like he was being poisoned and that he still has metal in his stomach. He states he is unsure why he is here at the psychiatric hospital as he needs more medical care. He reports auditory hallucinations that are command in nature and states they are threatening bid writer at the moment. Went through patient's medications with him as he has trialed several psychotropic medications and he was agreeable with starting Seroquel as he has not tried this med previously. He reports a history of worsening in his voices with psychotropic medications and other various adverse effects including akathisia and muscle stiffness. Patient denies any suicidal or homicidal ideations intent or plan. At this time patient denies any visual hallucinations. Patient denies any flight of ideas racing thoughts and increased in goal directed behavior." Hospital course: Upon admission to the unit patient was directable and agreeable to commence treatment and signed adult voluntary form.. Patient was mostly seen isolative ho wever did attempt to go to intermittently to groups however historically patient does not do well around others, he did require several as needed medications for agitation towards his peers however improved throughout his stay. There appears to be behavioral components to this as well. Patient was compliant with the medications and denied any side effects throughout hospital course. Patient was started on Seroquel and this was increased to 50 mg daily and 300 mg at bedtime for psychosis, Depakote increased to 500 mg twice daily for mood stabilization. Depakote level returned back at this dose at 53. Patient spoke of his stressors and engaged in therapy both group and individual. Patient was also seen by medical team for history and physical exam. Throughout the course of the hospitalization patient gradually improved with regards to mood, anxiety, sleep and returned back to their baseline level of functioning. On the day of discharge patient denied any suicidal or homicidal ideations intent or plan denied any auditory or visual hallucinations. The patient denied any access to guns or weapons. Patient denied any paranoia and did not endorse any delusions. Patient does have a significant history of substance abuse and was counseled on abstaining from all substances including alcohol and marijuana. Patient was also counseled on the medications and need for regular compliance and was encouraged to follow-up with their outpatient appointment for mental health and also for primary care. Prior to discharge a family meeting will be arranged by social services manager to answer any questions and ensure safety upon discharge incuding making sure that guns/weapons are either removed from the home or locked away. Patient to be discharged back to [facility] on friend's property with [facility] follow-up. Patient was also provided a list of local shelters in the area given his homelessness Mental status exam: General Appearance: Patient appears to be stated age is alert, pleasant, and c ooperative. Patient is in no acute distress and has improved hygiene and grooming Behavior: Patient is calmly seated without any agitated behavior. Speech: Patient's speech is fluent and nonpressured. Mood/Affect: Patient reports their mood is "good", affect is congruent and constricted Suicidality/Homicidality: Patient denies having any suicidal or homicidal ideation intent or plan. Perceptions: Patient denies any visual hallucinations but reports stability in terms of auditory hallucinations, he did not appear internally preoccupied during encounter. Though content/process: There is no evidence of any delusional thought content and thought process is linear and logical. Memory and concentration: AOX3, grossly intact for the purposes of this session. Can spell "WORLD" backwards correctly. Judgment and insight: Chronically poor, however has improved with guarded prognosis Impression: Schizoaffective disorder, bipolar type History of antisocial personality disorder Cannabis use disorder Plan: -Continue with discharge today as patient has improved and stabilized psychiatrically and is not currently an imminent threat to themself and/or others. -Continue medications: Seroquel 50 mg daily and 300 mg at bedtime, Depakote 500 mg twice daily -Patient was counseled on the need for medication compliance and appropriate follow-up at mental health and also primary care for medical issues. Patient verbalized understanding and agreed. -Social work to help coordinate patients discharge today arrange for and conduct family meeting to ensure safety upon discharge and answer any questions/concerns. also to ensure safe home environment that guns/weapons are either removed from the home or locked away. Social work also to arrange for patients follow up appointments with [facility] for psychiatric care along with follow up with primary care provider. -Patient counseled on abstaining from recreational drugs and marijuana and alcohol. Was informed/educated on the adverse effects on their physical and mental health. Patient verbally agreed and understood. -Patient was instructed to return to the hospital or seek immediate medical care if their psychiatric or medical symptoms do worsen or reoccur. Abnormal Labs 09/14/24 09/15/24 00:23 12:22 Triglycerides 153.00 H HDL Cholesterol 33.60 L U Marijuana (THC) Screen Detected H Vital Signs Temp 97.2 F L 09/25/24 06:43 Pulse 90 09/27/24 09:08 Resp 18 09/27/24 09:08 BP 123/80 09/27/24 09:08 Pulse Ox 96 09/26/24 08:28 FiO2 Intake & Output 09/26/24 09/27/24 09/27/24 18:59 06:59 18:59 Weight 139.1 kg Allergies Allergy/AdvReac Type Severity Reaction Status Date / Time No Known Allergies Allergy Verified 09/13/24 23:50 Patient Condition at Discharge: Stable Plan - Discharge Summary Discharge Rx Participant: Yes New Discharge Prescriptions: New Divalproex [Depakote] 500 mg PO BID 30 Days #60 tab QUEtiapine [SEROquel] 300 mg PO HS 30 Days #90 tab QUEtiapine [SEROquel] 50 mg PO DAILY 30 Days #30 tab Continue Albuterol Inhaler [Ventolin Hfa Inhaler] 1 - 2 puff INHALATION RT-Q6H PRN PRN Reason: Shortness Of Breath lisinopriL [Zestril] 10 mg PO DAILY Fenofibrate,Micronized [Fenofibrate] 43 mg PO DAILY atenoloL 25 mg PO BID Discontinued Ketorolac [Toradol] 10 mg PO Q6HR PRN PRN Reason: Pain Cholecalciferol [Vitamin D3] 5,000 unit PO DAILY Baclofen [Lioresal] 10 mg PO BID Discharge Medication List Albuterol Inhaler [Ventolin Hfa Inhaler] 1 - 2 puff INHALATION RT-Q6H PRN 11/04/18 [History] Fenofibrate,Micronized [Fenofibrate] 43 mg PO DAILY 11/04/18 [History] atenoloL 25 mg PO BID 11/04/18 [History] lisinopriL [Zestril] 10 mg PO DAILY 11/04/18 [History] Divalproex [Depakote] 500 mg PO BID 30 Days #60 tab 09/27/24 [Rx] QUEtiapine [SEROquel] 50 mg PO DAILY 30 Days #30 tab 09/27/24 [Rx] QUEtiapine [SEROquel] 300 mg PO HS 30 Days #90 tab 09/27/24 [Rx] Follow up Appointment(s)/Referral(s): [facility] [Outside] - 09/28/24 11:00 am (09-28-24 at 11:00 with Preethi Cardozo 09-29-24 at 8:30 with ANA Moore ) [facility] [NON-STAFF] - 1 Week Patient Instructions/Handouts: Brief Psychotic Disorder (DC), Schizoaffective Disorder (DC) Activity/Diet/Wound Care/Special Instructions: [facility] Discharge Info Avoid the use of street drugs and alcohol. Take all medications as prescribed. When you are in need of refills on your medications, please contact your outpatient medical provider and/or outpatient psychiatrist. Please go to your scheduled outpatient appointments for aftercare treatment. If symptoms return or become worse, call the crisis line at or and/or visit the nearest emergency room for assistance. National Suicide and Crisis Lifeline - call or text 241 Discharge Disposition: HOME SELF-CARE
== END 2024-09-27 12:02 | disposition home or self-care (01) | DRG 750 ==
LOC: SUPCPDRO 23:41 → EC 23:41 → 3MHU 09-14 03:44
PROVIDERS: ADMIT Psychiatry & Neurology Psychiatry; ATTEND Psychiatry & Neurology Psychiatry
DX: F25.0 Schizoaffective disorder, bipolar type (principal); F51.5 Nightmare disorder; F41.9 Anxiety disorder, unspecified; T43.595A Adverse effect of other antipsychotics and neuroleptics, initial encounter; I10 Essential (primary) hypertension; R32 Unspecified urinary incontinence; F60.2 Antisocial personality disorder; F12.10 Cannabis abuse, uncomplicated; Z71.51 Drug abuse counseling and surveillance of drug abuser; R45.1 Restlessness and agitation; E66.01 Morbid (severe) obesity due to excess calories; F17.210 Nicotine dependence, cigarettes, uncomplicated; Z71.3 Dietary counseling and surveillance; Z68.41 Body mass index [BMI] 40.0-44.9, adult; Z28.21 Immunization not carried out because of patient refusal; Z11.52 Encounter for screening for COVID-19; Z59.02 Unsheltered homelessness; Z79.899 Other long term (current) drug therapy; Z81.8 Family history of other mental and behavioral disorders; Z86.14 Personal history of Methicillin resistant Staphylococcus aureus infection
CPT/HCPCS: 80053; 80061; 80164; 80306; 81003; 82075; 82248; 83036; 84443; 85025; 87636; 99285

== ENCOUNTER 2024-10-12 09:43 | Inpatient (IN) | payer MEDICAID, OTHER ==
[2024-10-12 11:12] LABS: Amphetamine Screen,Urine Not Detected (NotDetected); Barbiturate Screen,Urine Not Detected (NotDetected); Benzodiazepines Screen,Urine Not Detected (NotDetected); Cocaine Screen,Urine Not Detected (NotDetected); Methadone Screen, Urine Not Detected (NotDetected); Opiate Screen,Urine Not Detected (NotDetected); Oxycodone Screen, Urine Not Detected (NotDetected); Phencyclidine Screen,Urine Not Detected (NotDetected); Tricyclic Antidepressant,Urine Detected (NotDetected); Urn Cannabinoid Scrn Detected (NotDetected)
--- NOTE | 2024-10-12 11:12 | ED ---
General Adult HPI - General Chief complaint: Psychiatric Symptoms Stated complaint: mental health Time Seen by Provider: 10/12/24 10:00 Source: patient, RN notes reviewed, old records reviewed Mode of arrival: ambulatory Limitations: no limitations - History of Present Illness Initial comments: This is a 39-year-old male who comes to the emergency department stating that he is hearing voices and is more paranoid. Patient states it all started after his brother kicked him out of his camper and he cannot find a place to stay. Patient states he is also try to get a job where he can do some work at [id number] but they are not hiring currently. Patient denies any physical complaints today. Patient denies any drinking patient denies any drug use. - Related Data Home Medications Medication Instructions Recorded Confirmed Albuterol Inhaler [Ventolin Hfa 1 - 2 puff INHALATION RT-Q6H PRN 11/04/18 11/04/18 Inhaler] Fenofibrate,Micronized 43 mg PO DAILY 11/04/18 11/04/18 [Fenofibrate] atenoloL 25 mg PO BID 11/04/18 11/04/18 lisinopriL [Zestril] 10 mg PO DAILY 11/04/18 11/04/18 Previous Rx's Medication Instructions Recorded Divalproex [Depakote] 500 mg PO BID 30 Days #60 tab 09/27/24 QUEtiapine [SEROquel] 50 mg PO DAILY 30 Days #30 tab 09/27/24 QUEtiapine [SEROquel] 300 mg PO HS 30 Days #90 tab 09/27/24 Allergies Allergy/AdvReac Type Severity Reaction Status Date / Time No Known Allergies Allergy Verified 09/13/24 23:50 Review of Systems ROS Statement: Those systems with pertinent positive or pertinent negative responses have been documented in the HPI. ROS Other: All systems not noted in ROS Statement are negative. Past Medical History Past Medical History: Hypertension History of Any Multi-Drug Resistant Organisms: MRSA Date of last positivie culture/infection: 04/06/2018 MDRO Source:: buttock wound Past Surgical History: No Surgical Hx Reported Additional Past Surgical History / Comment(s): plastic surgery for aguirre, fingers sewed back on, Past Anesthesia/Blood Transfusion Reactions: No Reported Reaction Past Psychological History: Schizophrenia Smoking Status: Current every day smoker Past Alcohol Use History: Occasional Past Drug Use History: Marijuana - Past Family History Mother Additional Family Medical History / Comment(s): schizophrenia- committed suicide Father Additional Family Medical History / Comment(s): alcoholic General Exam - General Exam Comments Initial Comments: GENERAL: Patient is well-developed and well-nourished. Patient is nontoxic and well- hydrated and is in no acute distress. ENT: Neck is soft and supple. No significant lymphadenopathy is noted. Oropharynx is clear. Moist mucous membranes. Neck has full range of motion without eliciting any pain. EYES: The sclera were anicteric and conjunctiva were pink and moist. Extraocular movements were intact and pupils were equal round and reactive to light. Eyelids were unremarkable. PULMONARY: Unlabored respirations. Good breath sounds bilaterally. No audible rales rhonchi or wheezing was noted. CARDIOVASCULAR: There is a regular rate and rhythm without any murmurs gallops or rubs. ABDOMEN: Soft and nontender with normal bowel sounds. SKIN: Skin is clear with no lesions or rashes and otherwise unremarkable. NEUROLOGIC: Patient is alert and oriented x3. Cranial nerves II through XII are grossly intact. Motor and sensory are also intact. Normal speech, volume and content. Symmetrical smile. MUSCULOSKELETAL: Normal extremities with adequate strength and full range of motion. No lower extremity swelling or edema. No calf tenderness. LYMPHATICS: No significant lymphadenopathy is noted PSYCHIATRIC: Patient states he is hearing voices and is becoming very paranoid Limitations: no limitations Course Vital Signs 10/12/24 09:52 Temperature 98.2 F Pulse Rate 83 Respiratory 20 Rate Blood Pressure 126/82 O2 Sat by Pulse 97 Oximetry Medical Decision Making - Medical Decision Making Was pt. sent in by a medical professional or institution (, PA, REGISTERED NURSE CARDIAC, urgent care, hospital, or retirement...) When possible be specific @ -No Did you speak to anyone other than the patient for history (EMS, parent, family, police, friend...)? What history was obtained from this source @ -No Did you review nursing and triage notes (agree or disagree)? Why? @ -I reviewed and agree with nursing and triage notes Were old charts reviewed (outside hosp., previous admission, EMS record, old EKG, old radiological studies, urgent care reports/EKG's, retirement records)? Report findings @ -No old charts were reviewed Differential Diagnosis? @ -Differential Mental Health Depression, anxiety, bipolar, psychosis, schizophrenia, borderline personality, situational depression, adjustment disorder, behavioral disorder, brain tumor, malingering, substance abuse, encephalopathy, medication reaction, dementia, hypothyroidism, degenerative neurologic disorder, lupus.... This is not meant to be all-inclusive list EKG interpreted by me (3pts min.). @ -As above X-rays interpreted by me (1pt min.). @ -None done CT interpreted by me (1pt min.). @ -None done U/S interpreted by me (1pt. min.). @ -None done What testing was considered but not performed or refused? (CT, X-rays, U/S, labs)? Why? @ -None What meds were considered but not given or refused? Why? @ -None Did you discuss the management of the patient with other professionals (martínez purcell i.e. , PA, REGISTERED NURSE CARDIAC, lab, RT, psych nurse, marriage and family social worker, entertainment lawyer, teacher, correction officer, case consultant)? Give summary @ -I spoke with EPS and they came down and evaluated the patient spoke with a psychiatrist and is determined that the patient needed to be admitted. Was smoking cessation discussed for >3mins.? @ -No Was critical care preformed (if so, how long)? @ -No Were there social determinants of health that impacted care today? How? (Homelessness, low income, unemployed, alcoholism, drug addiction, transportation, low edu. Level, literacy, decrease access to med. care, residential, r ehab)? @ -No Was there de-escalation of care discussed even if they declined (Discuss DNR or withdrawal of care, Hospice)? DNR status @ -No What co-morbidities impacted this encounter? (DM, HTN, Smoking, COPD, CAD, Cancer, CVA, ARF, Chemo, Hep., AIDS, mental health diagnosis, sleep apnea, morbid obesity)? @ -None Was patient admitted / discharged? Hospital course, mention meds given and route, prescriptions, significant lab abnormalities, going to OR and other pertinent info. @ -Patient was claimed that he was hearing voices that were belittling him and he did have urges to hurt other people. EPS evaluated the patient and determined that the patient needed to be admitted. Undiagnosed new problem with uncertain prognosis? @ -No Drug Therapy requiring intensive monitoring for toxicity (Heparin, Nitro, Insulin, Cardizem)? @ -No Were any procedures done? @ -No Diagnosis/symptom? @ -Acute psychosis Acute, or Chronic, or Acute on Chronic? @ -Acute Uncomplicated (without systemic symptoms) or Complicated (systemic symptoms)? @ -Complicated Side effects of treatment? @ -No Exacerbation, Progression, or Severe Exacerbation? @ -No Poses a threat to life or bodily function? How? (Chest pain, [place], [place], pneumonia, PE, COPD, DKA, ARF, appy, cholecystitis, CVA, Diverticulitis, Homicidal, Suicidal, threat to staff... and all critical care pts) @ -No - Lab Data Lab Results 10/12/24 Range/Units 10:44 Urine Opiates Screen Not Detected (NotDetected) Ur Oxycodone Screen Not Detected (NotDetected) Urine Methadone Screen Not Detected (NotDetected) Ur Barbiturates Screen Not Detected (NotDetected) U Tricyclic Antidepress Detected H (NotDetected) Ur Phencyclidine Scrn Not Detected (NotDetected) Ur Amphetamines Screen Not Detected (NotDetected) U Methamphetamines Scrn Not Detected (NotDetected) U Benzodiazepines Scrn Not Detected (NotDetected) Urine Cocaine Screen Not Detected (NotDetected) U Marijuana (THC) Screen Detected H (NotDetected) Disposition Clinical Impression: Acute psychosis Disposition: ADMITTED IP TO THIS HOSP Referrals: Fito Martini FNPBC [Primary Care Provider] - 1-2 days Time of Disposition: 14:08
[2024-10-12] MEDS ORDERED: IBUPROFEN 800 MG TAB PO PRN (15:25)
[2024-10-12] MEDS ORDERED: ALBUTEROL INHALER 60 PUFF/8 GM INHALER (MHU) INHALATION PRN (15:25)
[2024-10-12] MEDS ORDERED: MAGNESIUM HYDROXIDE 2,400 MG/30 ML CUP PO PRN (15:26)
[2024-10-12] MEDS ORDERED: ACETAMINOPHEN TAB 325 MG TAB PO PRN (15:26)
[2024-10-12] MEDS ORDERED: LORazepam 1 MG TAB PO PRN ×2 (15:26)
[2024-10-12] MEDS ORDERED: LORazepam 2 MG/ML INJ IM PRN (15:26)
[2024-10-12] MEDS ORDERED: haloperidoL 5 MG TAB PO PRN (15:26)
[2024-10-12] MEDS ORDERED: HALOPERIDOL LACTATE 5 MG/ML 1 ML VIAL IM PRN (15:26)
[2024-10-12] MEDS ORDERED: MAG HYDROX/AL HYDROX/SIMETH 355 ML BOTTLE PO PRN (15:26)
[2024-10-12] MEDS: QUEtiapine 100 MG TAB PO SCH (20:23)
[2024-10-12] MEDS: DIVALPROEX 500 MG TABLET.DR PO SCH (20:24)
[2024-10-12] MEDS: metFORMIN 500 MG TAB PO SCH (20:24)
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
[2024-10-13] MEDS: FENOFIBRATE 54 MG TAB PO SCH (08:19)
[2024-10-13] MEDS: QUEtiapine 50 MG TAB PO SCH (08:19)
[2024-10-13] MEDS: ATORVASTATIN 10 MG TAB PO SCH (08:19)
[2024-10-13 08:29] LABS: Appearance,Urine Clear (Clear); Bilirubin,Urine Negative (Negative); Blood,Urine Negative (Negative); Color,Urine Light Yellow; Glucose,Urine (UA) 3+ (Negative); Ketones,Urine Trace (Negative); Leukocyte Esterase,Urine Negative (Negative); Nitrite,Urine Negative (Negative); Protein,Urine Negative (Negative); Specific Gravity,Urine 1.023 (1.001-1.035); Urobilinogen,Urine <2.0 mg/dL (<2.0)
[2024-10-13 12:38] LABS: ALT 33 U/L (4-49); AST 26 U/L (17-59); African American GFR (CKD) >90 (>60 ml/min/1.73 sqM); Albumin 3.7 g/dL (3.5-5.0); Alkaline Phosphatase 65 U/L (38-126); Anion Gap 2 mmol/L; Blood Urea Nitrogen 15 mg/dL (9-20); Carbon Dioxide 29 mmol/L (22-30); Chloride 107 mmol/L (98-107); Glucose 107 mg/dL (74-99); Non-African American GFR(CKD) >90 (>60 ml/min/1.73 sqM); Potassium 4.2 mmol/L (3.5-5.1); Sodium 138 mmol/L (137-145); Total Bilirubin 0.3 mg/dL (0.2-1.3); Total Protein 6.2 g/dL (6.3-8.2)
[2024-10-13 12:43] LABS: Valproic Acid (Depakene) 42.5 ug/mL
[2024-10-13 12:47] LABS: Basophils % (A) 1 %; Eosinophils # (A) 0.2 k/uL (0-0.7); Eosinophils % (A) 3 %; HCT 45.5 % (39.0-53.0); HGB 15.1 gm/dL (13.0-17.5); Lymphocytes # (A) 1.5 k/uL (1.0-4.8); Lymphocytes % (A) 24 %; MCH 30.8 pg (25.0-35.0); MCHC 33.2 g/dL (31.0-37.0); MCV 92.8 fL (80.0-100.0); Mean Platelet Volume 7.8; Monocytes # (A) 0.5 k/uL (0-1.0); Monocytes % (A) 8 %; Neutrophils # (A) 4.1 k/uL (1.3-7.7); Neutrophils % (A) 63 %; Platelet Count 181 k/uL (150-450); RDW 12.3 % (11.5-15.5); WBC 6.4 k/uL (3.8-10.6)
[2024-10-14 10:25] LABS: Chol/HDL Ratio 5.57 Ratio; LDL Cholesterol,Calculated 144.3 mg/dL (0.0-131.0)
[2024-10-14] MEDS: LIDOCAINE 4% PATCH TOPICAL PRN (18:39)
--- NOTE | 2024-10-14 21:42 | US ---
EXAMINATION TYPE: US venous doppler duplex LE LT DATE OF EXAM: 10/14/2024 9:19 PM COMPARISON: NONE CLINICAL INDICATION: Male, 39 years old with history of 10/10 left calf pain; Patient states calf felecia n. No hx dvt. Not on thinners, Pain TECHNIQUE: The lower extremity deep venous system is examined utilizing real time linear array sonog mo with graded compression, color doppler sonography, and spectral doppler. SIDE PERFORMED: Left FINDINGS: VESSELS IMAGED: Common Femoral Vein Deep Femoral Vein Greater Saphenous Vein * Femoral Vein Popliteal Vein Small Saphenous Vein * Proximal Calf Veins (* superficial vessels) Left Leg: Appears negative for DVT, Color Doppler imaging shows patency of the vessels. Spectral wav eforms are within normal limits. IMPRESSION: No ultrasound evidence for deep venous thrombosis of the left lower extremity. [facility], , 10/14/2024 9:40 PM
--- NOTE | 2024-10-15 20:13 | P.PN ---
Progress Note - Text Progress Note Date: 10/14/24 Progress Note: Interval history: Patient was seen on 10/14/24 over HIPAA compliant telehealth with staff present in the conference room. He tends to be argumentative, and tends to deflect. He fixates on needing pain medication for chronic pain and needing housing. He claims he was feeling fine when he was living with his brother, and started to feel worse after losing his housing. He is irritable. He denies AVH. He denies SI/HI. We reviewed his medications and he declines medication changes today. He has been compliant with medications and denies medication side effects. MENTAL STATUS EXAM: General Appearance: Patient appears stated age. Messy hair and cedeno. Just woke up. Behavior: Argumentative, no agitation but tends to deflect and be antagonistic Speech: Patient's speech is fluent and non-pressured. Mood/Affect: Claims his mood is "crabby", affect is congruent. Suicidality/Homicidality: Denies Perceptions: Denies any auditory/visual hallucinations, Though content/process: Focused on needing pain medications for chronic pain and needing housing. Memory and concentration: AOX3 Judgment and insight: Poor ASSESSMENT/PLAN: Continue current diagnosis. Patient continues to meet criteria for inpatient hospitalization. -Medications: Continue to encourage compliance with medications. Continue medications as currently prescribed since he refuses any medication adjustments. Medical doctor to address chronic pain. -Ativan and Haldol PRN for agitation/aggression -NRT - not needed as patient does not smoke -SW on board for discharge planning. Encourage patient to participate in groups to work on coping skills. Will await deferral and court date.
--- NOTE | 2024-10-15 20:26 | P.PN ---
Progress Note - Text Progress Note Date: 10/15/24 Progress Note: Interval history: He continues to focus on being homeless and needing disability money, continues to have negative perspective on mental health meds and declines medication adjustments. Insight continues to be poor. He was sleeping and reports he was annoyed when nurse woke him up to ask him her assessment questions. He continues to decline any medication changes offered, does not want an antidepressant. He is irritable. He denies AVH. He denies SI/HI. We reviewed his medications and he declines medication changes today. He has been compliant with medications and denies medication side effects. MENTAL STATUS EXAM: General Appearance: Patient appears stated age. Messy hair and cedeno. Just woke up. Behavior: Argumentative, no agitation but tends to deflect and be antagonistic Speech: Patient's speech is fluent and non-pressured. Mood/Affect: mood is irritable, affect is congruent. Suicidality/Homicidality: Denies Perceptions: Denies any auditory/visual hallucinations, Though content/process: Focused on needing pain medications for chronic pain and needing housing. Some paranoia. Memory and concentration: AOX3 Judgment and insight: Poor ASSESSMENT/PLAN: Continue current diagnosis. Patient continues to meet criteria for inpatient hospitalization. -Medications: Continue to encourage compliance with medications. Continue medications as currently prescribed since he refuses any medication adjustments. -Ativan and Haldol PRN for agitation/aggression -NRT - not needed as patient does not smoke -SW on board for discharge planning. Encourage patient to participate in groups to work on coping skills.
--- NOTE | 2024-10-16 10:18 | P.PN ---
Subjective Progress Note Date: 10/16/24 Principal diagnosis: paranoid schizophrenia Interval history: He continues to focus on being homeless and needing disability money, continues to have negative perspective on mental health meds and declines medication adjustments. Insight continues to be poor. He was sleeping and reports he was annoyed when nurse woke him up to ask him her assessment questions. He continues to decline any medication changes offered, does not want an antidepressant. He is irritable. He denies AVH. He denies SI/HI. We reviewed his medications and he declines medication changes today. He has been compliant with medications and denies medication side effects. MENTAL STATUS EXAM: Kobi says that he is doing fine except for aches and pains in his feet hip and back which are chronic but he did not want to take anything for them. General Appearance: Patient appears stated age. Messy hair and cedeno. Just woke up. lying in bed at 10:00 in the morning he had no close and didn't want to get up and get dressed and come and talk to me so we talked in the room. he was somewhat disoriented thinking was Friday rather than Friday Behavior:he was not agitated and seemed calmer today Speech: Patient's speech is fluent and non-pressured. Mood/Affect: mood is irritable, affect is congruent. Suicidality/Homicidality: Denies Perceptions: Denies any auditory/visual hallucinations, Though content/process: Focused on needing pain medications for chronic pain and needing housing. Some paranoia. Memory and concentration: AOX3 Judgment and insight: Poor ASSESSMENT/PLAN: paranoid schizophrenia Patient continues to meet criteria for inpatient hospitalization. -Medications: Continue to encourage compliance with medications. Continue medications as currently prescribed since he refuses any medication adjustments. -Ativan and Haldol PRN for agitation/aggression -NRT - not needed as patient does not smoke -SW on board for discharge planning. Encourage patient to participate in groups to work on coping skills. Objective - Vital Signs Vital signs: Vital Signs Temp 97 F L 10/15/24 08:28 Pulse 106 H 10/15/24 08:28 Resp 16 10/12/24 15:46 BP 116/82 10/15/24 08:28 Pulse Ox 97 10/15/24 08:28 FiO2 - Labs CBC & Chem 7: 10/13/24 11:48 10/13/24 11:48
--- NOTE | 2024-10-17 16:38 | P.MDCNMH ---
History of Present Illness H&P Date: 10/17/24 Patient is a 39-year-old male with history of type 2 diabetes, dyslipidemia, schizophrenia currently on mental health unit. [facility] physicians consulted for medical management. Labs reviewed, WBC 6.4, hemoglobin 15.1, creatinine 0.73, A1c 6.6, total cholesterol 210, LDL 144, triglycerides 140. Patient denies any chest pain, shortness of breath, abdominal pain, nausea, vomiting, urinary or bowel complaints. Pertinent positives and negatives as discussed in HPI, a complete review of systems was performed and all other systems are negative. Patient seen and examined at bedside. Vital signs reviewed General: nontoxic, no distress, appears at stated age Derm: warm, dry Head: atraumatic, normocephalic, symmetric Eyes: EOMI, no lid lag, anicteric sclera, pupils equal round reactive to light ENT: Nose and ears atraumatic Neck: No thyromegaly, supple Mouth: no lip lesion, mucus membranes moist Cardiovascular: S1S2 reg, no murmur, no edema Lungs: clear to auscultation bilateral, no rhonchi, no rales, no wheeze, no accessory muscle use Abdominal: soft, nontender to palpation, no guarding, no appreciable organomegaly Ext: no gross muscle atrophy, muscle strength muscle strength 5 out of 5 in all 4 extremities, no contractures Neuro: CN II-XII grossly intact Psych: Alert, oriented, appropriate affect Assessment/Plan: Type 2 diabetes, A1c 6.6 -Continue metformin 500 mg twice daily Dyslipidemia -Continue atorvastatin 10 mg daily, fenofibrate 54 mg daily Schizophrenia -Rest of the care per psychiatry. Thank you for allowing us to participate in the care of this pleasant patient. Do not hesitate to contact us with questions. Someone can be reached from the [facility] Physicians hospitalist group all hours of the day at [phone] or via [employer]. Past Medical History Past Medical History: Hypertension History of Any Multi-Drug Resistant Organisms: MRSA Date of last positivie culture/infection: 04/06/2018 MDRO Source:: buttock wound Past Surgical History: No Surgical Hx Reported Additional Past Surgical History / Comment(s): plastic surgery for aguirre, fingers sewed back on, Past Anesthesia/Blood Transfusion Reactions: No Reported Reaction Past Psychological History: Schizophrenia Smoking Status: Current every day smoker Past Alcohol Use History: Occasional Past Drug Use History: Marijuana - Past Family History Mother Family Medical History: No Reported History Additional Family Medical History / Comment(s): schizophrenia- committed suicide Father Family Medical History: No Reported History Additional Family Medical History / Comment(s): alcoholic Medications and Allergies Home Medications Medication Instructions Recorded Confirmed Type Albuterol Inhaler [Ventolin Hfa 2 puff INHALATION RT-Q6H PRN 11/04/18 10/12/24 History Inhaler] Divalproex [Depakote] 500 mg PO BID 30 Days #60 tab 09/27/24 10/12/24 Rx QUEtiapine [SEROquel] 50 mg PO DAILY 30 Days #30 tab 09/27/24 10/12/24 Rx QUEtiapine [SEROquel] 300 mg PO HS 30 Days #90 tab 09/27/24 10/12/24 Rx Atorvastatin [Lipitor] 10 mg PO DAILY 10/12/24 10/12/24 History Fenofibrate 54 mg PO DAILY 10/12/24 10/12/24 History Ibuprofen [Motrin] 800 mg PO TID PRN 10/12/24 10/12/24 History metFORMIN HCL [Glucophage] 500 mg PO BID 10/12/24 10/12/24 History Allergies Allergy/AdvReac Type Severity Reaction Status Date / Time No Known Allergies Allergy Verified 10/12/24 14:16 Cranial Nerve Examination - Cranial Nerves Cranial Nerve II- Optic: Intact Cranial Nerve III- Oculomotor: Intact Cranial Nerve IV- Trochlear: Intact Cranial Nerve V- Trigeminal: Intact Cranial Nerve - Abducens: Intact Cranial Nerve VII- Facial: Intact Cranial Nerve VIII- Auditory: Intact Cranial Nerve IX- Glossopharyngeal: Intact Cranial Nerve X- Vagus: Intact Cranial Nerve XI- Accessory: Intact Cranial Nerve XII- Hypoglossal: Intact Results CBC & Chem 7: 10/13/24 11:48 10/13/24 11:48
--- NOTE | 2024-10-18 16:02 | P.PN ---
Progress Note - Text Interval History: Patient was seen at the bedside and was directable and agreeable to speak with curriculum writer. He recalled the events that led to his admission and explained that he was kicked out of his brother's camper. He shared that the camper is "too small for 2 people" and he and his brother were "butting heads". His brother told him at 1 point that he had 1 hour to get out of the camper after which time the police will be called if he did not leave. As such patient was on the street for 1 night and ended up coming into the hospital after feeling that people were out to get him and noticing that he had ongoing conflict with others. Additionally he shared that he continues to feel "a little worried" and "feels like aerobes are out to get me". We discussed his current medication regimen and he declined making any changes. He shared that he just wants to sleep, when asked about his mood.. At this time patient denies any suicidal or homicidal ideations, intent or plan. Patient endorses experiencing auditory and visual hallucinations though was unable to provide details. He felt he both heard and saw things last night. He also notices that people are out to get him. Patient denies any side effects from the medications and has been compliant with meds. Mental Status Exam: General Appearance: Patient appears to be stated age is alert, directable, and cooperative. Behavior: Patient is lying down without any agitated behavior. Speech: Patient's speech is fluent and non-pressured. Mood/Affect: Mood is "just want to sleep", affect is congruent and constricted. A bit gruff. Suicidality/Homicidality: Patient denies having any suicidal or homicidal ideation, intent, or plan. Perceptions: Patient endorses visual hallucinations and auditory hallucinations last night. Though content/process: There is concern for paranoia and thought process is largely linear and goal-directed though some paucity of thought. Memory and concentration: AOX3, grossly intact for the purposes of this session Judgment and insight: Poor ASSESSMENT: Schizoaffective disorder, bipolar type History of antisocial personality disorder Cannabis use disorder Mr. Clifton Ha is a 39 year old man with a history of schizoaffective disorder, antisocial PD, and cannabis use disorder who presented to the ER following a conflict with his brother that resulted in Mr. Ha being unable to reside with him. In the midst of again experiencing homelessness, he describes having felt anxious and thought he was hearing things during the night on the street. He also described the experience of feeling that others were trying to find fault with him. He continues to endorse hallucinations and paranoia though has consistently declined medication titration this admission. It seems likely that the combination of psychotic symptoms and personality traits make it difficult for him to thrive in group living environments. However, he has st ruggled to live independently as he has not been able to take the steps necessary to maintain employment and thus have ample income to support himself. Will continue to discuss the possibility of medication adjustment with him; he may benefit from a long-acting injection to provide more potent symptom relief and optimize adherence. PLAN: -Patient continues to meet criteria for inpatient psychiatric admission for symptom stabilization and safety. Patient has signed adult voluntary form and medication consent and was placed in patient's chart. -Medications: - Continue Seroquel 50mg QAM/300 mg QHS for psychotic symptoms; he was not open to making an adjustment today - Continue Divalproex 500 mg BID -When necessary Ativan and Haldol for agitation/aggression. -NRT -nicotine patch -SW on board for discharge planning. Encouraged the patient to participate in milieu.
--- NOTE | 2024-10-19 09:41 | P.PN ---
Progress Note - Text Progress Note Date: 10/19/24 Interval History: Patient was seen at the bedside and was directable and agreeable to speak with internal communications writer. Patient was seen sitting in the dark, looking at the ground. He was fairly concrete, introduced himself to internal communications writer. Spoke about feeling "very ill" before he came into the hospital. Claims that he believes that he may have had pneumonia as he was homeless. States that he is still feeling a bit weak. Claims that he is still experiencing auditory hallucinations. Claims that "the arabs are telling me that I stole their son God". Claims that he was sleeping on and off last night, has fair energy. Fair appetite at this time. Denying any depression or anxiety. Denying any other problems with his medications. Patient endorses experiencing auditory and denies visual hallucinations. He also notices that people are out to get him. Patient denies any side effects from the medications and has been compliant with meds. Mental Status Exam: General Appearance: Patient appears to be stated age is alert, directable, and cooperative. Behavior: Patient is lying down without any agitated behavior. Fairly evasive Speech: Patient's speech is fluent and non-pressured. Soft tone, concrete Mood/Affect: Mood is "fine", affect is congruent and constricted. Suicidality/Homicidality: Patient denies having any suicidal or homicidal ideation, intent, or plan. Perceptions: Patient endorses auditory hallucinations, denies any visual hallucinations. Though content/process: There is concern for paranoia and thought process is largely linear and goal-directed though some paucity of thought. Memory and concentration: AOX3, grossly intact for the purposes of this session Judgment and insight: Poor, improving mildly ASSESSMENT: Schizoaffective disorder, bipolar type History of antisocial personality disorder Cannabis use disorder PLAN: -Patient continues to meet criteria for inpatient psychiatric admission for symptom stabilization and safety. Patient has signed adult voluntary form and medication consent and was placed in patient's chart. -Medications: -Increase Seroquel 50mg QAM/400 mg QHS for psychotic symptoms; will consider changing antipsychotic if patient continues to show no improvement in his sx. - Continue Divalproex 500 mg BID -When necessary Ativan and Haldol for agitation/aggression. -NRT -nicotine patch -SW on board for discharge planning. Encouraged the patient to participate in milieu.
[2024-10-19] MEDS: QUEtiapine 400 MG TAB PO SCH (20:48)
[2024-10-20 08:16] VITALS: RESP 17
--- NOTE | 2024-10-20 09:47 | P.PN ---
Progress Note - Text Progress Note Date: 10/20/24 Interval History: Patient was seen at the bedside and was directable and agreeable to speak with administrative underwriter. Patient appeared to be fairly tired today. Claims that he felt he slept throughout the night. States that he did have a minor headache last night. He was less focused on delusions and paranoia today however continues to claim that "I still do not trust people". Claims to have mild anxiety, denies any depression today. Fair appetite at this time. Denying any depression or anxiety. Denying any other problems with his medications. Patient denies any auditory and denies visual hallucinations. Denies any thoughts of suicidal or homicidal ideations. Patient denies any side effects from the medications and has been compliant with meds. Mental Status Exam: General Appearance: Patient appears to be stated age is alert, directable, and cooperative. Behavior: Patient is lying down without any agitated behavior. Fairly evasive Speech: Patient's speech is fluent and non-pressured. Soft tone, concrete Mood/Affect: Mood is "fine", affect is congruent and constricted. Suicidality/Homicidality: Patient denies having any suicidal or homicidal ideation, intent, or plan. Perceptions: Patient denies any auditory hallucinations, denies any visual hallucinations. Though content/process: Endorsing loss paranoia and thought process is largely linear and goal-directed though some paucity of thought. Improving mildly Memory and concentration: AOX3, grossly intact for the purposes of this session Judgment and insight: Poor, improving mildly ASSESSMENT: Schizoaffective disorder, bipolar type History of antisocial personality disorder Cannabis use disorder PLAN: -Patient continues to meet criteria for inpatient psychiatric admission for symptom stabilization and safety. Patient has signed adult voluntary form and medication consent and was placed in patient's chart. -Medications: -decrease Seroquel 400 mg QHS for psychotic symptoms; will consider changing antipsychotic if patient continues to show no improvement in his sx. -Continue Divalproex 500 mg BID -When necessary Ativan and Haldol for agitation/aggression. -NRT -nicotine patch -SW on board for discharge planning. Encouraged the patient to participate in milieu. hopeful for discharge friday if patient is improving psychiatrically and has a discharge plan.
[2024-10-21 08:11] VITALS: TEMP 97.8
--- NOTE | 2024-10-21 11:29 | P.PN ---
Progress Note - Text Progress Note Date: 10/21/24 Interval History: Patient was seen at the bedside and was directable and agreeable to speak with telegraphic typewriter operator chief. Patient appears to be more cooperative today with telegraphic typewriter operator chief. More organized in his thought process. He claims that he is homeless, claims that he cannot stay with his brother, planning on going to a care home. He appears to be less delusional today, does not trust other patients on the unit. States that he does not want to go to group because of this. Claims that he is open to trying medication for his neuropathy in his feet, he never tried Cymbalta and is agreeable to this. Claims that he felt he slept throughout the night. denies any depression today. Fair appetite at this time. Denying any other problems with his medications. Patient denies any auditory and denies visual hallucinations. Denies any thoughts of suicidal or homicidal ideations. Patient denies any side effects from the medications and has been compliant with meds. Mental Status Exam: General Appearance: Patient appears to be stated age is alert, directable, and cooperative. Behavior: Patient is lying down without any agitated behavior. More cooperative today, less irritable Speech: Patient's speech is fluent and non-pressured. Less irritable Mood/Affect: Mood is "fine", affect is congruent and constricted. Improving mildly Suicidality/Homicidality: Patient denies having any suicidal or homicidal ideation, intent, or plan. Perceptions: Patient denies any auditory hallucinations, denies any visual hallucinations. Though content/process: thought process is largely linear and goal-directed though some paucity of thought. Improving mildly Memory and concentration: AOX3, grossly intact for the purposes of this session Judgment and insight: Chronically poor, improving mildly ASSESSMENT: Schizoaffective disorder, bipolar type History of antisocial personality disorder Cannabis use disorder PLAN: -Patient continues to meet criteria for inpatient psychiatric admission for symptom stabilization and safety. Patient has signed adult voluntary form and medication consent and was placed in patient's chart. -Medications: -Continue Seroquel 400 mg QHS for psychotic symptoms -Continue Divalproex 500 mg BID -Start Cymbalta 30 mg daily for neuropathic pain/mood/anxiety. -When necessary Ativan and Haldol for agitation/aggression. -NRT -nicotine patch -SW on board for discharge planning. Encouraged the patient to participate in milieu. hopeful for discharge tomorrow if patient is improving psychiatrically. Patient is currently homeless, will be referred to care home.
[2024-10-21] MEDS: DULoxetine HCL 30 MG CAPSULE.DR PO SCH (11:53)
[2024-10-22 06:48] VITALS: BP 106/75; PULSE 76
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
== END 2024-10-22 13:50 | disposition home or self-care (01) | DRG 750 ==
LOC: EC 09:43 → 3MHU 15:17
PROVIDERS: ADMIT Psychiatry & Neurology Psychiatry; ATTEND Psychiatry & Neurology Psychiatry
DX: F25.0 Schizoaffective disorder, bipolar type (principal); F60.2 Antisocial personality disorder; F12.10 Cannabis abuse, uncomplicated; I10 Essential (primary) hypertension; F17.200 Nicotine dependence, unspecified, uncomplicated; E11.40 Type 2 diabetes mellitus with diabetic neuropathy, unspecified; F41.9 Anxiety disorder, unspecified; E78.5 Hyperlipidemia, unspecified; G89.29 Other chronic pain; Z56.0 Unemployment, unspecified; Z59.00 Homelessness unspecified; Z79.899 Other long term (current) drug therapy; Z86.14 Personal history of Methicillin resistant Staphylococcus aureus infection; Z81.8 Family history of other mental and behavioral disorders; Z79.84 Long term (current) use of oral hypoglycemic drugs
CPT/HCPCS: 80053; 80061; 80164; 80306; 81003; 82075; 83036; 84443; 85025; 87635; 99285

== ENCOUNTER 2025-01-13 20:12 | Inpatient (IN) | payer MEDICAID, OTHER ==
--- NOTE | 2025-01-13 21:03 | ED ---
General Adult HPI - General Chief complaint: Psychiatric Symptoms Stated complaint: petition Time Seen by Provider: 01/13/25 20:49 Source: patient, police Mode of arrival: ambulatory Limitations: no limitations - History of Present Illness Initial comments: Clifton is a 39yo M brought to the ER today by Law Enforcement for evaluation of mental health concerns. Patient is very agitated and paranoid. He states that he was tased in October and he believes they have implanted something inside of his body. Patient also states he believes the triage nurse was lying about his vital signs wants them rechecked. He also states he wants his breathalyzer redone because he was only breathing with his left lung and he wants to perform 1 with his right lung. - Related Data Home Medications Medication Instructions Recorded Confirmed Albuterol Inhaler [Ventolin Hfa 2 puff INHALATION RT-Q6H PRN 11/04/18 10/12/24 Inhaler] Ibuprofen [Motrin] 800 mg PO TID PRN 10/12/24 10/12/24 Previous Rx's Medication Instructions Recorded Atorvastatin [Lipitor] 10 mg PO DAILY 30 Days #30 tab 10/22/24 DULoxetine HCL [Cymbalta] 30 mg PO DAILY 30 Days #30 cap 10/22/24 Divalproex [Depakote] 500 mg PO BID 30 Days #60 tab 10/22/24 Fenofibrate 54 mg PO DAILY 30 Days #30 tab 10/22/24 Lidocaine 4% Patch 1 patch TOPICAL DAILY PRN 14 Days 10/22/24 #14 patch QUEtiapine [SEROquel] 400 mg PO HS 30 Days #30 tab 10/22/24 metFORMIN HCL [Glucophage] 500 mg PO BID 30 Days #60 tab 10/22/24 Allergies Allergy/AdvReac Type Severity Reaction Status Date / Time No Known Allergies Allergy Verified 10/12/24 14:16 Review of Systems ROS Statement: Those systems with pertinent positive or pertinent negative responses have been documented in the HPI. ROS Other: All systems not noted in ROS Statement are negative. Past Medical History Past Medical History: Hypertension History of Any Multi-Drug Resistant Organisms: MRSA Date of last positivie culture/infection: 04/06/2018 MDRO Source:: buttock wound Past Surgical History: No Surgical Hx Reported Additional Past Surgical History / Comment(s): plastic surgery for aguirre, fingers sewed back on, Past Anesthesia/Blood Transfusion Reactions: No Reported Reaction Past Psychological History: Schizophrenia Smoking Status: Current every day smoker Past Alcohol Use History: Occasional Past Drug Use History: Marijuana - Past Family History Mother Family Medical History: No Reported History Additional Family Medical History / Comment(s): schizophrenia- committed suicide Father Family Medical History: No Reported History Additional Family Medical History / Comment(s): alcoholic General Exam - General Exam Comments Initial Comments: Physical Exam GENERAL: Patient is well-developed and well-nourished. Patient is nontoxic and well-hydrated and is in no distress. HENT: Normocephalic, Atraumatic. EYES: PERRL, EOMI PULMONARY: Unlabored respirations. CARDIOVASCULAR: RRR Warm and well perfused extremities ABDOMEN: Non-distended SKIN: No rashes or bruising : Deferred NEUROLOGIC: Alert and oriented Normal speech Normal gait MUSCULOSKELETAL: Moving all extremities with no apparent injury PSYCHIATRIC: Agitated, tangential thoughts Limitations: no limitations Course Vital Signs 01/13/25 01/13/25 20:25 23:03 Temperature 97.4 F L Pulse Rate 95 81 Respiratory 20 16 Rate Blood Pressure 165/98 137/92 O2 Sat by Pulse 98 96 Oximetry Medical Decision Making - Medical Decision Making Was pt. sent in by a medical professional or institution (, PA, TENT ASSEMBLER, urgent care, hospital, or penitentiary...) When possible be specific @ -No Did you speak to anyone other than the patient for history (EMS, parent, family, police, friend...)? What history was obtained from this source @ -EMS Did you review nursing and triage notes (agree or disagree)? Why? @ -I reviewed and agree with nursing and triage notes Were old charts reviewed (outside hosp., previous admission, EMS record, old EKG, old radiological studies, urgent care reports/EKG's, penitentiary records)? Report findings @ -Previous charts were reviewed Differential Diagnosis (chest pain, altered mental status, abdominal pain women, abdominal pain men, vaginal bleeding, weakness, fever, dyspnea, syncope, headache, dizziness, GI bleed, back pain, seizure, CVA, palpatations, mental health)? @ -Differential Mental Health Depression, anxiety, bipolar, psychosis, schizophrenia, borderline personality, situational depression, adjustment disorder, behavioral disorder, brain tumor, malingering, substance abuse, encephalopathy, medication reaction, dementia, hypothyroidism, degenerative neurologic disorder, lupus.... This is not meant to be all-inclusive list EKG interpreted by me (3pts min.). @ -As above X-rays interpreted by me (1pt min.). @ -None done CT interpreted by me (1pt min.). @ -None done U/S interpreted by me (1pt. min.). @ -None done What testing was considered but not performed or refused? (CT, X-rays, U/S, labs)? Why? @ -None What meds were considered but not given or refused? Why? @ -None Did you discuss the management of the patient with other professionals (professionals i.e. Dr., PA, TENT ASSEMBLER, lab, RT, psych nurse, sr. social media & mobile manager, dumpster driver, teacher, intelligence officer, casework specialist)? Give summary @ -No Was smoking cessation discussed for >3mins.? @ -No Was critical care preformed (if so, how long)? @ -No Were there social determinants of health that impacted care today? How? (Homeles sness, low income, unemployed, alcoholism, drug addiction, transportation, low edu. Level, literacy, decrease access to med. care, halfway, rehab)? @ -Incarceration, lack of access to psychiatric medications Was there de-escalation of care discussed even if they declined (Discuss DNR or withdrawal of care, Hospice)? DNR status @ -No What co-morbidities impacted this encounter? (DM, HTN, Smoking, COPD, CAD, Cancer, CVA, ARF, Chemo, Hep., AIDS, mental health diagnosis, sleep apnea, morbid obesity)? @ -Mental health diagnosis Was patient admitted / discharged? Hospital course, mention meds given and route, prescriptions, significant lab abnormalities, going to OR and other pertinent info. @ -Transferred to psychiatric care Undiagnosed new problem with uncertain prognosis? @ -No Drug Therapy requiring intensive monitoring for toxicity (Heparin, Nitro, Insulin, Cardizem)? @ -No Were any procedures done? @ -No Diagnosis/symptom? @ -Acute psychosis Acute, or Chronic, or Acute on Chronic? @ -Acute, recurrent Uncomplicated (without systemic symptoms) or Complicated (systemic symptoms)? @ -Default Side effects of treatment? @ -No Exacerbation, Progression, or Severe Exacerbation? @ -No Poses a threat to life or bodily function? How? (Chest pain, USA, NC, pneumonia, PE, COPD, DKA, ARF, appy, cholecystitis, CVA, Diverticulitis, Homicidal, Suicidal, threat to staff... and all critical care pts) @ -Potentially - Lab Data Result diagrams: 01/13/25 21:35 01/13/25 21:35 Lab Results 01/13/25 01/13/25 01/13/25 Range/Units 20:59 21:35 21:35 WBC 8.2 (3.8-10.6) k/uL RBC 5.44 (4.30-5.90) m/uL Hgb 16.7 (13.0-17.5) gm/dL Hct 48.9 (39.0-53.0) % MCV 89.8 (80.0-100.0) fL MCH 30.6 (25.0-35.0) pg MCHC 34.1 (31.0-37.0) g/dL RDW 12.8 (11.5-15.5) % Plt Count 227 (150-450) k/uL MPV 7.9 Neutrophils % 72 % Lymphocytes % 17 % Monocytes % 7 % Eosinophils % 2 % Basophils % 0 % Neutrophils # 6.0 (1.3-7.7) k/uL Lymphocytes # 1.4 (1.0-4.8) k/uL Monocytes # 0.5 (0-1.0) k/uL Eosinophils # 0.1 (0-0.7) k/uL Basophils # 0.0 (0-0.2) k/uL Sodium 138 (137-145) mmol/L Potassium 4.2 (3.5-5.1) mmol/L Chloride 102 (98-107) mmol/L Carbon Dioxide 22 (22-30) mmol/L Anion Gap 14 mmol/L BUN 13 (9-20) mg/dL Creatinine 0.77 (0.66-1.25) mg/dL Est GFR (CKD-EPI)AfAm >90 (>60 ml/min/1.73 sqM) Est GFR (CKD-EPI)NonAf >90 (>60 ml/min/1.73 sqM) Glucose 105 H (74-99) mg/dL Calcium 10.0 (8.4-10.2) mg/dL Total Bilirubin 0.9 (0.2-1.3) mg/dL AST 34 (17-59) U/L ALT 52 H (4-49) U/L Alkaline Phosphatase 104 (38-126) U/L Total Protein 8.1 (6.3-8.2) g/dL Albumin 5.0 (3.5-5.0) g/dL Salicylates <1.0 mg/dL Urine Opiates Screen Not Detected (NotDetected) Ur Oxycodone Screen Not Detected (NotDetected) Urine Methadone Screen Not Detected (NotDetected) Acetaminophen <10.0 ug/mL Ur Barbiturates Screen Not Detected (NotDetected) Valproic Acid <10.0 ug/mL U Tricyclic Antidepress Not Detected (NotDetected) Ur Phencyclidine Scrn Not Detected (NotDetected) Ur Amphetamines Screen Not Detected (NotDetected) U Methamphetamines Scrn Not Detected (NotDetected) U Benzodiazepines Scrn Not Detected (NotDetected) Urine Cocaine Screen Not Detected (NotDetected) U Marijuana (THC) Screen Not Detected (NotDetected) Disposition Clinical Impression: Psychosis Disposition: TRANSFER TO PSYCH HOSP/UNIT Condition: Stable Is patient prescribed a controlled substance at d/c from ED?: No Referrals: None,Stated [Primary Care Provider] - 1-2 days
[2025-01-13 21:34] LABS: Amphetamine Screen,Urine Not Detected (NotDetected); Barbiturate Screen,Urine Not Detected (NotDetected); Benzodiazepines Screen,Urine Not Detected (NotDetected); Cocaine Screen,Urine Not Detected (NotDetected); Methadone Screen, Urine Not Detected (NotDetected); Opiate Screen,Urine Not Detected (NotDetected); Oxycodone Screen, Urine Not Detected (NotDetected); Phencyclidine Screen,Urine Not Detected (NotDetected); Tricyclic Antidepressant,Urine Not Detected (NotDetected); Urn Cannabinoid Scrn Not Detected (NotDetected)
--- NOTE | 2025-01-13 21:37 | XR ---
EXAMINATION TYPE: XR chest 1V DATE OF EXAM: 01/13/2025 9:30 PM COMPARISON: 06/30/2023 CLINICAL INDICATION: Male, 39 years old with history of tazed in left chest months ago, feels foreign body, TECHNIQUE: Single frontal view of the chest is obtained. FINDINGS: There is no focal air space opacity, pleural effusion, or pneumothorax seen. The cardiac silhouette size is within normal limits. The osseous structures are intact. IMPRESSION: No acute process. [facility], , 01/13/2025 9:34 PM
[2025-01-13 21:50] LABS: Basophils % (A) 0 %; Eosinophils # (A) 0.1 k/uL (0-0.7); Eosinophils % (A) 2 %; HCT 48.9 % (39.0-53.0); HGB 16.7 gm/dL (13.0-17.5); Lymphocytes # (A) 1.4 k/uL (1.0-4.8); Lymphocytes % (A) 17 %; MCH 30.6 pg (25.0-35.0); MCHC 34.1 g/dL (31.0-37.0); MCV 89.8 fL (80.0-100.0); Mean Platelet Volume 7.9; Monocytes # (A) 0.5 k/uL (0-1.0); Monocytes % (A) 7 %; Neutrophils % (A) 72 %; Platelet Count 227 k/uL (150-450); RBC 5.44 m/uL (4.30-5.90); RDW 12.8 % (11.5-15.5); WBC 8.2 k/uL (3.8-10.6)
[2025-01-13 22:00] LABS: ALT 52 U/L (4-49); AST 34 U/L (17-59); Acetaminophen <10.0 ug/mL; African American GFR (CKD) >90 (>60 ml/min/1.73 sqM); Alkaline Phosphatase 104 U/L (38-126); Anion Gap 14 mmol/L; Blood Urea Nitrogen 13 mg/dL (9-20); Carbon Dioxide 22 mmol/L (22-30); Chloride 102 mmol/L (98-107); Glucose 105 mg/dL (74-99); Non-African American GFR(CKD) >90 (>60 ml/min/1.73 sqM); Potassium 4.2 mmol/L (3.5-5.1); Salicylate <1.0 mg/dL; Sodium 138 mmol/L (137-145); Total Bilirubin 0.9 mg/dL (0.2-1.3); Total Protein 8.1 g/dL (6.3-8.2)
[2025-01-13 22:05] LABS: Valproic Acid (Depakene) <10.0 ug/mL
[2025-01-14] MEDS ORDERED: HALOPERIDOL LACTATE 5 MG/ML 1 ML VIAL IM PRN (01:11)
[2025-01-14] MEDS ORDERED: LORazepam 2 MG/ML INJ IM PRN (01:11)
[2025-01-14] MEDS ORDERED: MAG HYDROX/AL HYDROX/SIMETH 355 ML BOTTLE PO PRN (01:11)
[2025-01-14 04:00] LABS: Appearance,Urine Clear (Clear); Bilirubin,Urine Negative (Negative); Blood,Urine Negative (Negative); Color,Urine Yellow; Glucose,Urine (UA) Negative (Negative); Ketones,Urine Negative (Negative); Leukocyte Esterase,Urine Negative (Negative); Nitrite,Urine Negative (Negative); Protein,Urine Negative (Negative); Urobilinogen,Urine <2.0 mg/dL (<2.0)
[2025-01-14] MEDS: NICOTINE 14MG/24HR PATCH TRANSDERM SCH (09:56)
[2025-01-14] MEDS: IBUPROFEN 600 MG TAB PO PRN (10:18)
--- NOTE | 2025-01-14 13:21 | P.HP ---
Psychiatric H&P - . H&P Date: 01/14/25 History & Physical: Allergies Allergy/AdvReac Type Severity Reaction Status Date / Time No Known Allergies Allergy Verified 10/12/24 14:16 Vital Signs Temp 96.9 F L 01/14/25 10:25 Pulse 89 01/14/25 10:25 Resp 16 01/14/25 10:25 BP 113/89 01/14/25 10:25 Pulse Ox 100 01/14/25 01:16 FiO2 Intake & Output 01/13/25 01/14/25 01/14/25 18:59 06:59 18:59 Weight 125.277 kg Laboratory Last Values WBC 8.2 k/uL (3.8-10.6) 01/13/25 21:35 RBC 5.44 m/uL (4.30-5.90) 01/13/25 21:35 Hgb 16.7 gm/dL (13.0-17.5) 01/13/25 21:35 Hct 48.9 % (39.0-53.0) 01/13/25 21:35 MCV 89.8 fL (80.0-100.0) 01/13/25 21:35 MCH 30.6 pg (25.0-35.0) 01/13/25 21:35 MCHC 34.1 g/dL (31.0-37.0) 01/13/25 21:35 RDW 12.8 % (11.5-15.5) 01/13/25 21:35 Plt Count 227 k/uL (150-450) 01/13/25 21:35 MPV 7.9 01/13/25 21:35 Neutrophils % 72 % 01/13/25 21:35 Lymphocytes % 17 % 01/13/25 21:35 Monocytes % 7 % 01/13/25 21:35 Eosinophils % 2 % 01/13/25 21:35 Basophils % 0 % 01/13/25 21:35 Neutrophils # 6.0 k/uL (1.3-7.7) 01/13/25 21:35 Lymphocytes # 1.4 k/uL (1.0-4.8) 01/13/25 21:35 Monocytes # 0.5 k/uL (0-1.0) 01/13/25 21:35 Eosinophils # 0.1 k/uL (0-0.7) 01/13/25 21:35 Basophils # 0.0 k/uL (0-0.2) 01/13/25 21:35 Sodium 138 mmol/L (137-145) 01/13/25 21:35 Potassium 4.2 mmol/L (3.5-5.1) 01/13/25 21:35 Chloride 102 mmol/L (98-107) 01/13/25 21:35 Carbon Dioxide 22 mmol/L (22-30) 01/13/25 21:35 Anion Gap 14 mmol/L 01/13/25 21:35 BUN 13 mg/dL (9-20) 01/13/25 21:35 Creatinine 0.77 mg/dL (0.66-1.25) 01/13/25 21:35 Est GFR (CKD-EPI)AfAm >90 (>60 ml/min/1.73 sqM) 01/13/25 21:35 Est GFR (CKD-EPI)NonAf >90 (>60 ml/min/1.73 sqM) 01/13/25 21:35 Glucose 105 mg/dL (74-99) H 01/13/25 21:35 Calcium 10.0 mg/dL (8.4-10.2) 01/13/25 21:35 Total Bilirubin 0.9 mg/dL (0.2-1.3) 01/13/25 21:35 AST 34 U/L (17-59) 01/13/25 21:35 ALT 52 U/L (4-49) H 01/13/25 21:35 Alkaline Phosphatase 104 U/L (38-126) 01/13/25 21:35 Total Protein 8.1 g/dL (6.3-8.2) 01/13/25 21:35 Albumin 5.0 g/dL (3.5-5.0) 01/13/25 21:35 Urine Color Yellow 01/13/25 20:59 Urine Appearance Clear (Clear) 01/13/25 20:59 Urine pH 6.0 (5.0-8.0) 01/13/25 20:59 Ur Specific [place] 1.020 (1.001-1.035) 01/13/25 20:59 Urine Protein Negative (Negative) 01/13/25 20:59 Urine Glucose (UA) Negative (Negative) 01/13/25 20:59 Urine Ketones Negative (Negative) 01/13/25 20:59 Urine Blood Negative (Negative) 01/13/25 20:59 Urine Nitrite Negative (Negative) 01/13/25 20:59 Urine Bilirubin Negative (Negative) 01/13/25 20:59 Urine Urobilinogen <2.0 mg/dL (<2.0) 01/13/25 20:59 Ur Leukocyte Esterase Negative (Negative) 01/13/25 20:59 Salicylates <1.0 mg/dL 01/13/25 21:35 Urine Opiates Screen Not Detected (NotDetected) 01/13/25 20:59 Ur Oxycodone Screen Not Detected (NotDetected) 01/13/25 20:59 Urine Methadone Screen Not Detected (NotDetected) 01/13/25 20:59 Acetaminophen <10.0 ug/mL 01/13/25 21:35 Ur Barbiturates Screen Not Detected (NotDetected) 01/13/25 20:59 Valproic Acid <10.0 ug/mL 01/13/25 21:35 U Tricyclic Antidepress Not Detected (NotDetected) 01/13/25 20:59 Ur Phencyclidine Scrn Not Detected (NotDetected) 01/13/25 20:59 Ur Amphetamines Screen Not Detected (NotDetected) 01/13/25 20:59 U Methamphetamines Scrn Not Detected (NotDetected) 01/13/25 20:59 U Benzodiazepines Scrn Not Detected (NotDetected) 01/13/25 20:59 Urine Cocaine Screen Not Detected (NotDetected) 01/13/25 20:59 U Marijuana (THC) Screen Not Detected (NotDetected) 01/13/25 20:59 SARS-CoV-2 (PCR) Not Detected (Not Detectd) 01/13/25 22:17 01/14/25 13:12 IDENTIFYING DATA: Patient is a 39-year-old male, unemployed, homeless, recently released from penitentiary CHIEF COMPLAINT: Psychosis HPI: Patient presented to the hospital with psychosis. Per EPS, "Pt was released from penitentiary today, pt states d/t a misdemeanor. Pts appearance is unkempt and disheveled, pts fingernails are very long, hair is messy. Pt has moments of intense stares, he then will continue to look out of the room window. Pt is paranoid and worried that people are after him. Pt states he just heard multiple people in the hallway being threathened, "didn't you hear that"? Pt is preoccupied and harder to redirect. Pt does not answer all questions appropriatley. When asked about HI pt states, "a black gen who tries to control white people, jair cruz, he is trying to run the world". Pt believes that his white here is contaminated. He took the BAT twice because he wanted it done for both lungs. He states that he was tazed in penitentiary and now he has a tracker in him. Pt admits to [facility], he states that he sees spirits or "people that look one way and then look another, I have never seen anything like it". "They force me to pray at the feet and episcopalian and wash the feet"." Patient seen and evaluated on the unit and was agreeable with speaking to ad copy writer in office. He appeared disheveled, increased latency. He states spending 90-100 days in penitentiary due to a misdemeanor and he reports being mistreated there, stating they were not concerned with his physical complaints. Patient reports feeling as though something was crawling in his head earlier, displaying and reporting paranoia and also reporting auditory hallucinations that comes and goes described as whispers. Despite this, patient does not feel as though he needs to be on medications, displaying poor insight and has been nonadherent with his psychotropic medications while in penitentiary. He states they were trying to force him to take psych meds while in penitentiary however he does not feel as though he needs this. The involuntary process was described to patient given his unwillingness to accept help. Patient reports inability to get on disability which she questions given his mental health history. Patient request labs being drawn from both arms due to "imbalance". He reports sleeping well, denying any appetite changes. Patient denies any suicidal or homicidal ideations intent or plan. Patient denies any flight of ideas racing thoughts and increased in goal directed behavior. Patient admits to using cigarettes. PAST PSYCHIATRIC HISTORY: Patient has a history of schizoaffective disorder, bipolar type, antisocial personality disorder. Patient denies being on any psychiatric medications. Patient last with at this facility back in September 2024. Patient denies any psychiatric outpatient follow-up. Patient denies any history of suicide attempts in the past. PMH: as per ER note ALLERGIES: as per EMR SUBSTANCE USE HISTORY: Cigarettes daily FAMILY PSYCHIATRIC/SUBSTANCE USE HISTORY: Patient reports his mother completed suicide SOCIAL HISTORY: Patient was born and raised in [place]. He is homeless, recently released from penitentiary. He has his GED and has 1 son. He is unemployed but is hoping to get on disability however has been rejected twice. MENTAL STATUS EXAM: General Appearance: Patient appears to be stated age is alert, directable, and attempts to cooperate. Patient appears to have poor hygiene and grooming. Behavior: Patient is seated without any agitated behavior. Speech: Patient's speech is increased latency, slow rate Mood/Affect: Patient reports their mood is "okay", affect is congruent and constricted. Suicidality/Homicidality: Patient denies having any homicidal ideation intent or plan. Denies any suicidal ideations intent or plan Perceptions: Patient denies any visual hallucinations however he does report auditory hallucinations Though content/process: There is no evidence of any delusional thought content and thought process is linear and goal-directed. Memory and concentration: AOX3, grossly intact for the purposes of this session. Can spell "WORLD" backwards Judgment and insight: Poor STRENGTHS/WEAKNESSES: strength is that patient is resilient. Weakness is that patient has poor judgment/insight and is impulsive INTELLECT: Below average IMPRESSIONS: Schizoaffective disorder, bipolar type Antisocial personality disorder Nicotine dependence PLAN: -Patient is admitted under involuntary status to MHU for stabilization of psychiatric symptoms and safety. Patient has not signed adult voluntary form and medication consent and is placed in patient's chart. A second certification was completed and along with petition will be filed for court. -Medications : Risperdal 1 mg at bedtime for psychosis -Ativan and Haldol PRN for agitation/aggression -Patient was counselled on substance abuse and desired to cut back on use -Patient was informed of the risks, benefits and side effects of the medication and patient verbally consented to taking the medications. Patient signed med consent form and was placed in chart. -Internal Medicine consult to perform medical evaluation and physical. -NRT -nicotine patch -SW on board for discharge planning. Encourage patient to participate in groups to work on coping skills. Will await deferral and court date.
[2025-01-14] MEDS: LORazepam 1 MG TAB PO PRN (15:22)
[2025-01-14] MEDS: haloperidoL 5 MG TAB PO PRN (15:22)
[2025-01-14] MEDS ORDERED: OLANZapine 10 MG TAB PO SCH (21:00)
[2025-01-14] MEDS: risperiDONE 1 MG TAB PO SCH (21:40)
[2025-01-14] MEDS: GABAPENTIN 300 MG CAP PO PRN (21:58)
--- NOTE | 2025-01-15 04:26 | P.CONS ---
History of Present Illness - Reason for Consult Consult date: 01/15/25 - History of Present Illness The patient is a 39-year-old male with a PMH of hypertension, obesity, and paranoid schizophrenia who had presented to the emergency room for paranoia and agitation. The patient was admitted with modalities and where he was seen and evaluated. Patient notes that he has been struggling with multiple areas of his life which is causing a lot of stress for him which prompted him to come to the emergency room. The patient did endorse multiple joint pains at the time of interview including knee, ankle, elbow, and hips. He does report that the pain is worse with ambulation and has been going on for quite some time now, several years. He denied any additional complaints at the time of interview. Denied experiencing chest discomfort, shortness of breath, fever, chills, cough, nausea, vomiting, abdominal pain, diarrhea. Review of systems: Pertinent positives and negatives as discussed in HPI, a complete review of systems was performed and all other systems are negative. Physical examination: General: non toxic, no distress, appears at stated age, morbidly obese Derm: no unusual rashes/lesions, no unusual ecchymoses, warm, dry Head: atraumatic, normocephalic, symmetric Eyes: EOMI, no lid lag, anicteric sclera ENT: Nose and ears atraumatic, no thrush, no pharyngeal erythema Neck: trachea midline, supple Mouth: no lip lesion, mucus membranes moist Cardiovascular: S1S2 reg, no murmur, no edema Lungs: CTA bilateral, no rhonchi, no rales , no accessory muscle use Abdominal: soft, nontender to palpation, no guarding Ext: no gross muscle atrophy, no contractures, Neuro: No gross focal neuro deficits noted Psych: Alert, oriented, appropriate affect Assessment: Multiple joint pains Chronic conditions: Hypertension Schizophrenia Imaging: Chest x-ray in the emergency room was unremarkable Data Review: Laboratory evaluation was remarkable for glucose 105 and AST 34 with ALT 52 Plan: Consult PT Resume home medications once reconciled Defer management of schizophrenia to primary psychiatry service Thank you for allowing us to participate in the care of this patient. We will follow peripherally. Do not hesitate to contact us with questions. Someone can be reached from the [facility] hospitalist group at all hours of the day at [phone]. Past Medical History Past Medical History: Hypertension History of Any Multi-Drug Resistant Organisms: MRSA Year Discovered:: 04/06/2018 MDRO Source:: buttock wound Past Surgical History: No Surgical Hx Reported Additional Past Surgical History / Comment(s): plastic surgery for aguirre, fingers sewed back on, Past Anesthesia/Blood Transfusion Reactions: No Reported Reaction Smoking Status: Current every day smoker, Vaper - Past Family History Mother Family Medical History: No Reported History Additional Family Medical History / Comment(s): schizophrenia- committed suicide Father Family Medical History: No Reported History Additional Family Medical History / Comment(s): alcoholic Medications and Allergies Home Medications Medication Instructions Recorded Confirmed Type Albuterol Inhaler [Ventolin Hfa 2 puff INHALATION RT-Q6H PRN 11/04/18 10/12/24 History Inhaler] Ibuprofen [Motrin] 800 mg PO TID PRN 10/12/24 10/12/24 History Atorvastatin [Lipitor] 10 mg PO DAILY 30 Days #30 tab 10/22/24 Rx DULoxetine HCL [Cymbalta] 30 mg PO DAILY 30 Days #30 cap 10/22/24 Rx Divalproex [Depakote] 500 mg PO BID 30 Days #60 tab 10/22/24 Rx Fenofibrate 54 mg PO DAILY 30 Days #30 tab 10/22/24 Rx Lidocaine 4% Patch 1 patch TOPICAL DAILY PRN 14 Days 10/22/24 Rx #14 patch QUEtiapine [SEROquel] 400 mg PO HS 30 Days #30 tab 10/22/24 Rx metFORMIN HCL [Glucophage] 500 mg PO BID 30 Days #60 tab 10/22/24 Rx Allergies Allergy/AdvReac Type Severity Reaction Status Date / Time haloperidol [From Haldol] AdvReac Rapid Verified 01/14/25 22:40 Heart Rate Physical Exam Vitals: Vital Signs Temp Pulse Resp BP Pulse Ox 01/14/25 21:35 97.7 F 98 16 117/84 99 01/14/25 10:25 96.9 F L 89 16 113/89 Results CBC & Chem 7: 01/13/25 21:35 01/13/25 21:35
--- NOTE | 2025-01-15 11:22 | P.PN ---
Progress Note - Text Progress Note Date: 01/15/25 Interval history: Patient was seen laying in bed and was directable and agreeable to speak with screenplay writer. Patient appeared fatigued, expressed his mood as "tired" however states he slept well with staff noting patient to have slept for 4 hours overnight. Patient continues to display increased latency, brief in his responses. At this time patient denies any suicidal or homicidal ideations intent or plan. Denies any auditory or visual hallucinations. Patient denies any side effects from the medications and has been compliant with meds. Mental status exam: General Appearance: Patient appears to be stated age is fatigued but directable, and cooperative. Behavior: No agitated behavior. Patient is calm and directable. He is laying in bed Speech: Patient's speech is brief, nonpressured. Increased latency Mood/Affect: Mood is improving mildly, affect is congruent and constricted. Suicidality/Homicidality: Patient denies having any suicidal or homicidal ideation intent or plan. Perceptions: Patient denies any auditory or visual hallucinations. Though content/process: There is no evidence of any overt delusional thought content and thought process is linear. Memory and concentration: AOX3, grossly intact for the purposes of this session Judgment and insight: improving mildly Assessment/Plan: Continue with current diagnosis. Patient continues to meet criteria for inpatient psychiatric admission for symptom stabilization and safety. Patient will be maintained on current psychotropic medication regimen. Changed as needed meds from Haldol to Zyprexa given allergy. Monitor for medication compliance and for any psychotropic medication side effects. Will continue to monitor ongoing response to treatment. Encouraged participation in milieu.
[2025-01-16] MEDS ORDERED: traZODone HCL 50 MG TAB PO PRN (09:46)
--- NOTE | 2025-01-16 11:28 | P.PN ---
Progress Note - Text Progress Note Date: 01/16/25 Interval history: Patient was seen wandering the hallways and was directable and agreeable to s peak with leader writer. Patient notably appeared improved in terms of affect, tending to his ADLs in groups. He himself reports feeling significantly better and feels as though the meds have been helpful. Patient was educated on Ativan as although this is helpful for his anxiety this is not a good medication long-term and patient was agreeable with switching to hydroxyzine instead. Patient was future oriented today. He asked leader writer to have a family meeting with his brother tomorrow regarding possibly returning back home with him upon discharge. At this time patient denies any suicidal or homicidal ideations intent or plan. Denies any auditory or visual hallucinations. Patient denies any side effects from the medications and has been compliant with meds. Mental status exam: General Appearance: Patient appears to be stated age is alert, directable, and cooperative. Patient showered Behavior: No agitated behavior. Patient is calm and directable Speech: Patient's speech is fluent and nonpressured. Mood/Affect: Mood is improving mildly, affect is congruent and constricted. Suicidality/Homicidality: Patient denies having any suicidal or homicidal ideation intent or plan. Perceptions: Patient denies any auditory or visual hallucinations. Though content/process: There is no evidence of any delusional thought content and thought process is linear and goal-directed. Memory and concentration: AOX3, grossly intact for the purposes of this session Judgment and insight: improving mildly Assessment/Plan: Continue with current diagnosis. Patient continues to meet criteria for inpatient psychiatric admission for symptom stabilization and safety. Patient will be maintained on current psychotropic medication regimen other than the following: Discontinue Ativan as needed and start hydroxyzine 50 mg as needed for anxiety, add trazodone 50 mg as needed at bedtime for insomnia. Monitor for medication compliance and for any psychotropic medication side effects. Will continue to monitor ongoing response to treatment. Encouraged participation in milieu.
[2025-01-16] MEDS: hydrOXYzine pamoate 25 MG CAP PO PRN (15:51)
[2025-01-16] MEDS: OLANZapine 10 MG TAB PO PRN (15:51)
[2025-01-16] MEDS ORDERED: traZODone HCL 50 MG TAB PO SCH (21:00)
--- NOTE | 2025-01-17 13:14 | P.PN ---
Progress Note - Text Progress Note Date: 01/17/25 Interval History: Patient was seen in bed and was directable and agreeable to speak with telegraphic typewriter operator in the room. Patient did not sleep the night prior and thus slept through med pass last night, not taking his Risperdal. Patient today was surprised that he did not take his medication as he finds it helpful. He has been attending to his ADLs, attending groups. He reports sleeping well last night. At this time patient denies any suicidal or homicidal ideations, intent or plan. Patient denies any auditory, visual hallucinations and denies any paranoia or delusions. Patient denies any side effects from the medications. Mental Status Exam: General Appearance: Patient appears to be stated age is fatigued, semi- cooperative. He is overweight Behavior: Patient is calmly laying without any agitated behavior. Speech: Patient's speech is fluent and slow rate, latency improved Mood/Affect: Mood is improving mildly, affect is congruent and constricted. Suicidality/Homicidality: Patient denies having any suicidal or homicidal ideation intent or plan. Perceptions: Patient denies any visual hallucinations and denies any auditory hallucinations Though content/process: There is no evidence of any delusional thought content and thought process is linear and goal-directed. Memory and concentration: AOX3, grossly intact for the purposes of this session Judgment and insight: Improving mildly Assessment Schizoaffective disorder, bipolar type Antisocial personality disorder Nicotine dependence Plan: -Patient continues to meet criteria for inpatient psychiatric admission for symptom stabilization and safety. Patient has not signed adult voluntary form and medication consent and was placed in patient's chart. -Medications: Continue Risperdal 1 mg at bedtime for psychosis -When necessary hydroxyzine and Zyprexa for agitation/aggression. -Labs: Reviewed -NRT -nicotine patch -SW on board for discharge planning. Encouraged the patient to participate in milieu. Patient to be discharged tomorrow after deferral meeting with a hollow handle bench worker
[2025-01-17] MEDS: hydrOXYzine pamoate 25 MG CAP PO PRN (18:27)
[2025-01-17] MEDS: OLANZapine 10 MG VIAL IM PRN (19:22)
[2025-01-17] MEDS ORDERED: traZODone HCL 50 MG TAB PO PRN (21:00)
[2025-01-17] MEDS ORDERED: traZODone HCL 50 MG TAB PO SCH (21:00)
--- NOTE | 2025-01-18 11:31 | P.PN ---
Progress Note - Text Progress Note Date: 01/18/25 Interval History: Patient was seen in bed and was directable and agreeable to speak with hand sign writer in the room. Patient displayed irritability, low frustration tolerance yesterday after his dinner was interrupted, receiving as needed medications. Patient seen today in his room, antagonistic with hand sign writer and challenging hand sign writer at this time. Patient states he does not wish to speak to a lawyer criminal today and will go to court tomorrow despite him yesterday stating he will signed a deferral as he has been taking his medications and compliant with treatment. Attempted to discussed with patient the reasonings behind this however he states he did not want to talk about it. Patient displaying paranoid delusions, stated that hand sign writer is involved in the war in [place]. Patient irritable when hand sign writer states that his medication will be increased tonight, stating that hand sign writer is picking on him. Patient denies any side effects from the medications and has been compliant with meds. Mental Status Exam: General Appearance: Patient appears to be stated age is alert, uncooperative. Behavior: Patient displays irritability however not agitated. Antagonistic Speech: Patient's speech is fluent and nonpressured. Mood/Affect: Mood is irritable, affect is congruent and constricted. Suicidality/Homicidality: Patient denies having any suicidal or homicidal ideation intent or plan. Perceptions: Patient denies any visual hallucinations and denies any auditory hallucinations Though content/process: There is evidence of paranoid delusions, disorganization in thoughts Memory and concentration: AOX3, grossly intact for the purposes of this session Judgment and insight: Historically poor however improving mild Assessment Schizoaffective disorder, bipolar type Antisocial personality disorder Nicotine dependence Plan: -Patient continues to meet criteria for inpatient psychiatric admission for symptom stabilization and safety. Patient has not signed adult voluntary form and medication consent and was placed in patient's chart. -Medications: Increase Risperdal to 2 mg at bedtime for psychosis -When necessary hydroxyzine and Zyprexa for agitation/aggression. -Labs: Reviewed -NRT -nicotine patch -SW on board for discharge planning. Encouraged the patient to participate in milieu. Currently awaiting deferral with packing and stamping machine operator and court date. Anticipate discharge later this week/early next week, home with ex
[2025-01-18] MEDS: risperiDONE 1 MG TAB PO SCH (23:07)
[2025-01-19] MEDS ORDERED: OLANZapine 10 MG VIAL IM PRN (10:27)
--- NOTE | 2025-01-19 10:39 | P.PN ---
Progress Note - Text Progress Note Date: 01/19/25 Interval History: Patient was seen in the post. Patient refused to sign deferral with court kirk yonny scheduled for this morning however patient initially agreed to consent to order however he later felt this though his rights were being violated and thus he wished to go to court. During court, patient displayed predominant paranoia with disorganized thoughts. He claims he has been in so much pain that he has been unable to get up and that his [facility] doctor is trying to up his medications. 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 He admitted to intentionally committing the misdemeanor to get out of the cold as he was homeless and did not wish to get kicked out of be warm during the day. He also admitted to assaulting an officer while in halfway. He kept interrupting me ended up having to be muted. Patient displayed paranoia about being released to halfway upon discharge from this hospital. He did not take his Risperdal last night however staff mention he slept through [email or web address] however patient did report to sign writer hand yesterday that he was not in agreement with increasing the medications. Patient was briefly sexually preoccupied during the trial, talked about his past issues with masturbating and being session appropriate with female in the past. He is requesting to get a massage therapist upon discharge to address these issues. The floor helper recommend a guardian to which patient agreed. Mental Status Exam: General Appearance: Patient appears to be stated age is alert, directable, and cooperative. He is disheveled, wearing hospital gown Behavior: Patient is calmly seated without any agitated behavior. Speech: Patient's speech is fluent and talkative Mood/Affect: Mood is irritable, affect is congruent and labile. Suicidality/Homicidality: Patient denies having any suicidal or homicidal ideation intent or plan. Perceptions: Patient denies any visual hallucinations and denies any auditory hallucinations Though content/process: There is evidence of predominant paranoid delusions, disorganization in thoughts, tangential Memory and concentration: AOX3, grossly intact for the purposes of this session Judgment and insight: Poor Assessment Schizoaffective disorder, bipolar type Antisocial personality disorder Nicotine dependence Plan: -Patient continues to meet criteria for inpatient psychiatric admission for symptom stabilization and safety. Patient has not signed adult voluntary form and medication consent and was placed in patient's chart. -Medications: Continue Risperdal 2 mg at bedtime for psychosis, start Zyprexa 10 mg IM as needed at bedtime if patient refuses p.o. Risperdal per court order -When necessary Ativan and Haldol for agitation/aggression. -Labs: Reviewed -NRT -nicotine patch -SW on board for discharge planning. Encouraged the patient to participate in milieu. Patient court ordered today to 60/180. Anticipate discharge to ex- girlfriend's house pending transition to [facility]
[2025-01-19 16:58] LABS: Glucose,Whole Blood 85 mg/dL (70-110)
--- NOTE | 2025-01-20 12:03 | P.PN ---
Progress Note - Text Progress Note Date: 01/20/25 Interval History: Patient was seen in her room. Patient still upset from the previous evening s tated that the staff member was rude to him. He states he wish to be left alone and did not wish to speak to senior technical writer given his anger. Patient otherwise was adherent with his Risperdal last night, receiving no as needed backup's. Mental Status Exam: General Appearance: Patient appears to be stated age is alert, directable, and cooperative. Disheveled appearance Behavior: Patient is calmly standing without any agitated behavior. Speech: Patient's speech is fluent and nonpressured. Mood/Affect: Mood is irritable, affect is congruent and constricted. Suicidality/Homicidality: Patient denies having any suicidal or homicidal ideation intent or plan. Perceptions: Patient denies any visual hallucinations and denies any auditory hallucinations Though content/process: Thought content fixated on staff member being rude, superficially linear Memory and concentration: AOX3, grossly intact for the purposes of this session Judgment and insight: Poor Assessment Schizoaffective disorder, bipolar type Antisocial personality disorder Nicotine dependence Plan: -Patient continues to meet criteria for inpatient psychiatric admission for symptom stabilization and safety. Patient has not signed adult voluntary form and medication consent and was placed in patient's chart. -Medications: Increase Risperdal to 3 mg at bedtime for psychosis, continue Zyprexa 10 mg IM as needed at bedtime if patient refuses p.o. Risperdal per court order -When necessary Ativan and Haldol for agitation/aggression. -Labs: Reviewed -NRT -nicotine patch -SW on board for discharge planning. Encouraged the patient to participate in milieu. Patient court ordered 60/180 on 01/19/2025. Anticipate discharge on Friday to ex-girlfriend's house pending transition to [facility]
[2025-01-20 12:48] VITALS: RESP 18
[2025-01-20] MEDS: risperiDONE 1 MG TAB PO SCH (20:41)
[2025-01-20] MEDS: MAGNESIUM HYDROXIDE 2,400 MG/30 ML CUP PO PRN (20:45)
[2025-01-21] MEDS: ACETAMINOPHEN TAB 325 MG TAB PO PRN (11:13)
--- NOTE | 2025-01-21 12:00 | P.PN ---
Progress Note - Text Progress Note Date: 01/21/25 Interval History: Patient was seen in his room and was directable and agreeable to speak with wr iter in the room. Patient appeared more bright in affect, rating his pain a 10/10 in severity today stating that it prevents him from getting up and walking around however he was later seen walking appropriately on the unit, social. He has been tending to his ADLs, reports sleeping well. Patient brought all his court order and this was explained in detail regarding the need to comply, ultimately transitioning to an [facility] and to follow-up with his [facility] appointments to which he agreed. Patient reports feeling fatigued on the gabapentin however does not wish to decrease this medication at this time. He requests Ativan for anxiety stating that this was more helpful than hydroxyzine however he was reminded that he would not be sent home on this medication upon discharge. At this time patient denies any suicidal or homicidal ideations, intent or plan. Patient denies any auditory, visual hallucinations and denies any paranoia or delusions. Patient denies any side effects from the medications and has been compliant with meds. Mental Status Exam: General Appearance: Patient appears to be stated age is alert, directable, and cooperative. He is dressed in home clothes with fair hygiene Behavior: Patient is calmly seated without any agitated behavior. Speech: Patient's speech is fluent and nonpressured. Mood/Affect: Mood is improving mildly, affect is congruent and constricted. Suicidality/Homicidality: Patient denies having any suicidal or homicidal ideation intent or plan. Perceptions: Patient denies any visual hallucinations and denies any auditory hallucinations Though content/process: There is no evidence of any delusional thought content and thought process is linear and goal-directed. Memory and concentration: AOX3, grossly intact for the purposes of this session Judgment and insight: Improving mildly Assessment Schizoaffective disorder, bipolar type Antisocial personality disorder Nicotine dependence Plan: -Patient continues to meet criteria for inpatient psychiatric admission for symptom stabilization and safety. Patient has not signed adult voluntary form and medication consent and was placed in patient's chart. -Medications: Increase Risperdal to 4 mg at bedtime for psychosis, continue Zyprexa 10 mg IM as needed at bedtime if patient refuses p.o. Risperdal per court order. Patient informed of the transition to Risperdal Uad 100 mg subcutaneous to be administered over the weekend -When necessary Ativan and Haldol for agitation/aggression. -Labs: A1c 5.5 -NRT - nicotine patch -SW on board for discharge planning. Encouraged the patient to participate in milieu. Patient on an NIKUNJ that expires on 07/18/2025. Anticipate discharge to ex-girlfriend's house on Friday pending transition to [facility]
[2025-01-21] MEDS: risperiDONE 2 MG TAB PO SCH (20:27)
--- NOTE | 2025-01-22 11:43 | P.PN ---
Progress Note - Text Progress Note Date: 01/22/25 Interval history: Patient was seen laying in bed today. Tapeman attempted to approach patient to speak, patient was sleeping he woke up briefly turned away from ticket writer, claims that he does not want to speak with ticket writer, did not answer any questions. Has been taking his medications. Mental status exam: General Appearance: [Patient appears to be laying in bed, uncooperative stated age is alert Behavior: No agitated behavior. Laying in bed, uncooperative. Guarded Speech: Patient's speech is fluent and nonpressured. [place] Mood/Affect: Unable to assess Suicidality/Homicidality: Unable to assess Perceptions: Unable to assess Though content/process: [place], poverty of content Memory and concentration: Unable to assess Judgment and insight: Chronically poor Assessment/Plan: Continue with current diagnosis. Patient continues to meet criteria for inpatient psychiatric admission for symptom stabilization and safety.[Patient will be maintained on current psychotropic medication regimen. Patient will receive long-acting injection Friday morning prior to discharge. Monitor for medication compliance and for any psychotropic medication side effects. Will continue to monitor ongoing response to treatment. Encouraged participation in milieu.
--- NOTE | 2025-01-23 10:40 | P.PN ---
Progress Note - Text Progress Note Date: 01/23/25 Interval history: Patient was seen laying in bed today. Patient was awoken by narrative writer today. He denies any overnight complaints. Claims that he is in a bit of pain today. He states that he is concerned that he will be homeless when he leaves the hospital. He denies any depression or anxiety at this time. Denies any suicidal homicidal ideations intent or plan denies any auditory or visual hallucinations, he was fairly focused on discharge. Not reporting any issues from his medications at this time or side effects. Mental status exam: General Appearance: [Patient appears to be overweight, has a cedeno, laying in bed, more cooperative today. Behavior: No agitated behavior. Laying in bed, more cooperative today Speech: Patient's speech is fluent and nonpressured. [place] Mood/Affect: Claims that his mood is improving, affect is constricted Suicidality/Homicidality: Denies Perceptions: Denies Though content/process: [place], poverty of content, focused on discharge, minimizing Memory and concentration: Alert and oriented x 3, follows some commands Judgment and insight: Chronically poor, improving mildly Assessment/Plan: Continue with current diagnosis. Patient continues to meet criteria for inpatient psychiatric admission for symptom stabilization and safety.[Patient will be maintained on current psychotropic medication regimen. Patient will receive long-acting injection Friday morning prior to discharge. Monitor for medication compliance and for any psychotropic medication side effects. Will continue to monitor ongoing response to treatment. Encouraged participation in milieu.
[2025-01-23] MEDS: risperiDONE 100 MG/0.28 ML SYR (NO COST) SQ ONE (13:25)
[2025-01-23] MEDS: LORazepam 1 MG TAB PO PRN (15:29)
[2025-01-23 22:03] VITALS: TEMP 97.9
[2025-01-24 11:43] VITALS: BP 123/67; PULSE 80
--- NOTE | 2025-01-24 14:06 | P.DS ---
Providers Date of admission: 01/14/25 01:01 Expected date of discharge: 01/24/25 Attending physician: Oneida Gunter MD Consults: 01/14/25 01:11 Consult Physician Routine Consulting Provider: Jaxon Physician Consult Reason/Comments: H & P Do you want consulting provider notified?: Already Contacted Primary care physician: Stated None - Discharge Diagnosis(es) (1) Schizoaffective disorder, bipolar type Status: Acute Priority: High (2) Nicotine dependence Status: Acute Priority: Low (3) Antisocial personality disorder Status: Chronic Priority: Medium Hospital Course: Admission HPI: Admission note was completed by sports book writer" Patient presented to the hospital with psychosis. Per EPS, "Pt was [facility] today, pt states d/t a misdemeanor. Pts appearance is unkempt and disheveled, pts fingernails are very long, hair is messy. Pt has moments of intense stares, he then will continue to look out of the room window. Pt is paranoid and worried that people are after him. Pt states he just heard multiple people in the hallway being threathened, "didn't you hear that"? Pt is preoccupied and harder to redirect. Pt does not answer all questions appropriatley. When asked about [place] pt states, "a black gen who tries to control white people, jair cruz, he is trying to run the world". Pt believes that his white here is contaminated. He took the BAT twice because he wanted it done for both lungs. He states that he was tazed in [facility] and now he has a tracker in him. Pt admits to [facility], he states that he sees spirits or "people that look one way and then look another, I have never seen anything like it". "They force me to pray at the feet and rastafarian and wash the feet"." Patient seen and evaluated on the unit and was agreeable with speaking to sports book writer in office. He appeared disheveled, increased latency. He states spending 90-100 days in [facility] due to a misdemeanor and he reports being mistreated there, stating they were not concerned with his physical complaints. Patient reports feeling as though something was crawling in his head earlier, displaying and reporting paranoia and also reporting auditory hallucinations that comes and goes described as whispers. Despite this, patient does not feel as though he needs to be on medications, displaying poor insight and has been nonadherent with his psychotropic medications while in [facility]. He states they were trying to force him to take psych meds while in [facility] however he does not feel as though he needs this. The involuntary process was described to patient given his unwillingness to accept help. Patient reports inability to get on disability which she questions given his mental health history. Patient request labs being drawn from both arms due to "imbalance". He reports sleeping well, denying any appetite changes. Patient denies any suicidal or homicidal ideations intent or plan. Patient denies any flight of ideas racing thoughts and increased in goal directed behavior. Patient admits to using cigarettes." Hospital course: Upon admission to the unit patient was admitted involuntarily on a petition and certificate and a second certificate was completed and faxed to the courts. Patient ended up having a court hearing for mental health treatment and receiving a mental health treatment order on 01/19/2025 with an expiration date of 07/18/2025. Patient got along well with other patients on the unit and followed unit protocol. Patient was compliant with the medications and denied any side effects throughout hospital course. Patient was started on Risperdal and this was increased to 4 mg at bedtime. Patient ultimately transition to Risperdal Uzedy 100 mg subcutaneous every 4 weeks last given on 01/23/2025 and next due on 02/20/2025. Patient spoke of his stressors and engaged in therapy both group and individual. Patient was also seen by medical team for history and physical exam. Throughout the course of the hospitalization patient gradually improved with regards to mood, anxiety, sleep and returned back to their baseline level of functioning. On the day of discharge patient denied any suicidal or homicidal ideations intent or plan denied any auditory or visual hallucinations. The patient denied any access to guns or weapons. Patient denied any paranoia and did not endorse any delusions. Patient does not have a significant history of substance abuse and was counseled on abstaining from all substances including alcohol and marijuana. Patient was also counseled on the medications and need for regular compliance and was encouraged to follow-up with their outpatient appointment for mental health and also for primary care. Prior to discharge a family meeting will be arranged by group social worker to answer any questions and ensure safety upon discharge including making sure that guns/weapons are either removed from the home or locked away. Patient to be discharged to ex- girlfriend's house and will follow-up with [facility]. He was reminded of the court order into the need to comply with treatment to which he agreed. Mental status exam: General Appearance: Patient appears to be stated age is alert, pleasant, and cooperative. Patient is in no acute distress and has improved hygiene and grooming Behavior: Patient is calmly seated without any agitated behavior. Speech: Patient's speech is fluent and nonpressured. Mood/Affect: Patient reports their mood is "good", affect is congruent and euthymic, reactive. Suicidality/Homicidality: Patient denies having any suicidal or homicidal ideation intent or plan. Perceptions: Patient denies any auditory or visual hallucinations. Though content/process: There is no evidence of any delusional thought content and thought process is linear and goal-directed. Memory and concentration: AOX3, grossly intact for the purposes of this session. Can spell "WORLD" backwards correctly. Judgment and insight: Chronically poor, however has improved with guarded prognosis Impression: Schizoaffective disorder, bipolar type Antisocial personality disorder Nicotine dependence Plan: -Continue with discharge today as patient has improved and stabilized psychiatrically and is not currently an imminent threat to themself and/or others. -Continue medications: Risperdal Uzedy 100 mg subcutaneous every 4 weeks, next due on 02/20/2025 -Patient was counseled on the need for medication compliance and appropriate follow-up at mental health and also primary care for medical issues. Patient verbalized understanding and agreed. -Social work to help coordinate patients discharge today arrange for and conduct family meeting to ensure safety upon discharge and answer any questions/concerns. also to ensure safe home environment that guns/weapons are either removed from the home or locked away. Social work also to arrange for patients follow up appointments with [facility] for psychiatric care along with follow up with primary care provider. -Patient counseled on abstaining from recreational drugs and marijuana and alcohol. Was informed/educated on the adverse effects on their physical and mental health. Patient verbally agreed and understood. -Patient was instructed to return to the hospital or seek immediate medical care if their psychiatric or medical symptoms do worsen or reoccur. Abnormal Labs 01/13/25 21:35 Glucose 105 H ALT 52 H Vital Signs Temp 97.9 F 01/24/25 09:00 Pulse 80 01/24/25 09:00 Resp 18 01/24/25 09:00 BP 123/67 01/24/25 09:00 Pulse Ox 96 01/24/25 09:00 FiO2 Intake & Output 01/23/25 01/24/25 01/24/25 18:59 06:59 18:59 Weight 129.9 kg Allergies Allergy/AdvReac Type Severity Reaction Status Date / Time haloperidol [From Haldol] AdvReac Rapid Verified 01/14/25 22:40 Heart Rate Patient Condition at Discharge: Stable Plan - Discharge Summary Discharge Rx Participant: No New Discharge Prescriptions: New Ibuprofen [Motrin] 600 mg PO Q6HR PRN 30 Days #30 tab PRN Reason: Moderate Pain (Scale 4 To 6) Gabapentin [Neurontin] 300 mg PO BID PRN 30 Days #60 cap PRN Reason: Pain Nicotine 14Mg/24Hr Patch [Habitrol] 1 patch TRANSDERM DAILY 30 Days #30 patch Magnesium Hydroxide [Milk of Magnesia] 2,400 mg PO DAILY PRN 30 Days #355 ml PRN Reason: Constipation hydrOXYzine pamoate [Vistaril] 25 mg PO Q6HR PRN 30 Days #30 cap PRN Reason: Anxiety risperiDONE [Uzedy] 100 mg SQ QMONTHLY 30 Days #1 each Discontinued Albuterol Inhaler [Ventolin Hfa Inhaler] 2 puff INHALATION RT-Q6H PRN PRN Reason: Shortness Of Breath Lidocaine 4% Patch 1 patch TOPICAL DAILY PRN 14 Days #14 patch PRN Reason: Pain/Discomfort QUEtiapine [SEROquel] 400 mg PO HS 30 Days #30 tab Divalproex [Depakote] 500 mg PO BID 30 Days #60 tab metFORMIN HCL [Glucophage] 500 mg PO BID 30 Days #60 tab Ibuprofen [Motrin] 800 mg PO TID PRN PRN Reason: Pain DULoxetine HCL [Cymbalta] 30 mg PO DAILY 30 Days #30 cap Fenofibrate 54 mg PO DAILY 30 Days #30 tab Atorvastatin [Lipitor] 10 mg PO DAILY 30 Days #30 tab Discharge Medication List Gabapentin [Neurontin] 300 mg PO BID PRN 30 Days #60 cap 01/24/25 [Rx] Ibuprofen [Motrin] 600 mg PO Q6HR PRN 30 Days #30 tab 01/24/25 [Rx] Magnesium Hydroxide [Milk of Magnesia] 2,400 mg PO DAILY PRN 30 Days #355 ml 01/24/25 [Rx] Nicotine 14Mg/24Hr Patch [Habitrol] 1 patch TRANSDERM DAILY 30 Days #30 patch 01/24/25 [Rx] hydrOXYzine pamoate [Vistaril] 25 mg PO Q6HR PRN 30 Days #30 cap 01/24/25 [Rx] risperiDONE [Uzedy] 100 mg SQ QMONTHLY 30 Days #1 each 01/24/25 [Rx] Follow up Appointment(s)/Referral(s): [facility] [Outside] - 02/04/25 3:00 pm (Karime Rojas [facility] [NON-STAFF] - 1 Week Patient Instructions/Handouts: How to Stop Smoking (DC), Schizoaffective Disorder (DC), Psychotic Disorder (DC) Activity/Diet/Wound Care/Special Instructions: [facility] Discharge Info Avoid the use of street drugs and alcohol. Take all medications as prescribed. When you are in need of refills on your medications, please contact your outpatient medical provider and/or outpatient psychiatrist. Please go to your scheduled outpatient appointments for aftercare treatment. If symptoms return or become worse, call the crisis line at or and/or visit the nearest emergency room for assistance. National Suicide and Crisis Lifeline - call or text 988 Discharge Disposition: HOME SELF-CARE
== END 2025-01-24 12:45 | disposition home or self-care (01) | DRG 761 ==
LOC: EC 20:12 → 3MHU 01-14 01:01
PROVIDERS: ADMIT Psychiatry & Neurology Psychiatry; ATTEND Psychiatry & Neurology Psychiatry
DX: F25.0 Schizoaffective disorder, bipolar type (principal); E66.9 Obesity, unspecified; Z68.39 Body mass index [BMI] 39.0-39.9, adult; F17.210 Nicotine dependence, cigarettes, uncomplicated; F17.290 Nicotine dependence, other tobacco product, uncomplicated; F60.2 Antisocial personality disorder; I10 Essential (primary) hypertension; Z56.0 Unemployment, unspecified; Z59.811 Housing instability, housed, with risk of homelessness; Z79.84 Long term (current) use of oral hypoglycemic drugs; Z79.899 Other long term (current) drug therapy; Z65.3 Problems related to other legal circumstances; Z71.89 Other specified counseling; R45.1 Restlessness and agitation; Z86.14 Personal history of Methicillin resistant Staphylococcus aureus infection; Z88.8 Allergy status to other drugs, medicaments and biological substances
CPT/HCPCS: 36415; 71045; 80053; 80143; 80164; 80179; 80306; 81003; 82075; 83036; 85025; 87635; 99285